=== PATIENT | male | born 1960 | race Caucasian/White ===

== ENCOUNTER 2016-08-15 20:14 | Emergency (ER) | payer BC ==
[~2016-08-15] VITALS: Ht 182.9 cm; Wt 114.2 kg
[~2016-08-15 20:14] MED LIST: AMLO5TAB22 PO; CIPR500T4 PO; HYDR12.56 PO; IBUP-232 PO; LOPE2 PO; QUIN20 PO
[2016-08-15 20:19] VITALS: BP 139/90; PULSE 77; RESP 14; TEMP 98.2; O2SAT 98
[2016-08-15 20:32] VITALS: BP 134/81; PULSE 72; RESP 16; O2SAT 98
[2016-08-15] MEDS ORDERED: SODIUM CHLOR 0.9% 1000 ML INJ 1,000 ML IV SCH (20:36)
--- NOTE | 2016-08-15 20:40 | PD ---
HPI Chief Complaint: Abdominal Pain Time Seen by Provider: 20:22 Travel History International Travel<30 days: No Contact w/Intl Traveler<30days: No Traveled to known affect area: No History of Present Illness HPI The patient is a 55-year-old male who presents emergency department for left lower quadrant pain of one week's duration. The pain started approximately one week ago, is located left lower quadrant, nonradiating, and assisted with mild constipation. The patient denies any nausea, vomiting, fever , chills, or sweats. The patient was seen at an urgent care earlier today and diagnosed with diverticulitis, was placed on Augmentin, and took 2 doses today. The patient does have a history of diverticulosis that was evaluated via colonoscopy 7 years ago, but denies any history of diverticulitis. He does have previous history of appendectomy. He denies any associated dysuria, frequency, or urgency. The patient's primary physician is Dr. Cliff Escobedo. PFS Past Medical History Cancer: No Cardiovascular Problems: No Diabetes: No Diminished Hearing: No Diverticulitis: Yes Glaucoma: No Hepatitis: No Hiatal Hernia: No Hypertension: Yes Musculoskeletal: Yes (HERNIATED L5) Respiratory: No Thyroid Disease: No Past Surgical History Abdominal Surgery: No Appendectomy: Yes Cardiac Surgery: No Endocrine Surgery: No Eye Surgery: No Genitourinary Surgery: Yes (VASECTOMY) Gynecologic Surgery: No Neurologic Surgery: Yes (BACK SURGERY) Oral Surgery: Yes (TOOTH EXTRACTION) Thoracic Surgery: No Other Surgery: Yes (NOSE) Social History Alcohol Use: Yes (6 BEERS A DAY) Tobacco Use: No Substance Use: No Allergies-Medications (Allergen,Severity, Reaction): Coded Allergies: Percocet (Verified Adverse Reaction, Intermediate, Nausea/Vomiting, ) Reported Meds & Prescriptions Reported Meds & Active Scripts Active Motrin (Ibuprofen) 600 Mg Tab 600 Mg PO QID PRN GIVE WITH FOOD Imodium (Loperamide HCl) 2 Mg Cap 2 Mg PO DIRECTED PRN Cipro (Ciprofloxacin HCl) 500 Mg Tab 500 Mg PO BID Reported Amlodipine Besylate 5 Mg Tab 5 Mg PO DAILY Hctz (Hydrochlorothiazide) 12.5 Mg Cap 0 PO BID UNKNOWN DOSE Accupril (Quinapril HCl) 20 Mg Tab 20 Mg PO BID Review of Systems Except as stated in HPI: all other systems reviewed are Neg General / Constitutional: No: Fever, Chills Cardiovascular: No: Chest Pain or Discomfort Respiratory: No: Shortness of Breath Gastrointestinal: Positive: Abdominal Pain, Constipation, Changes in Bowel Habits, No: Nausea, Vomiting, Diarrhea Genitourinary: No: Urgency, Frequency, Dysuria Skin: No Rash Physical Exam Narrative GENERAL: Awake, alert, very pleasant 55-year-old male who appears his stated age and is in no acute respiratory distress. SKIN: Focused skin assessment warm/dry. HEAD: Atraumatic. Normocephalic. EYES: Pupils equal and round. No scleral icterus. No injection or drainage. ENT: No nasal bleeding or discharge. Mucous membranes pink and moist. NECK: Trachea midline. No JVD. CARDIOVASCULAR: Regular rate and rhythm. No murmur appreciated. RESPIRATORY: No accessory muscle use. Clear to auscultation. Breath sounds equal bilaterally. GASTROINTESTINAL: Abdomen soft, tender to palpation left lower quadrant. No suprapubic tenderness. MUSCULOSKELETAL: No obvious deformities. No clubbing. No cyanosis. No edema. NEUROLOGICAL: Awake and alert. No obvious cranial nerve deficits. Motor grossly within normal limits. Normal speech. PSYCHIATRIC: Appropriate mood and affect; insight and judgment normal. Data Data Last Documented VS Vital Signs Date Time Temp Pulse Resp B/P Pulse Ox O2 Delivery O2 Flow Rate FiO2 08/15/16 21:14 16 08/15/16 20:32 72 134/81 98 Room Air 08/15/16 20:19 98.2 Orders Complete Blood Count With Diff (08/15/16 20:36) Comprehensive Metabolic Panel (08/15/16 20:36) Lipase (08/15/16 20:36) Lactic Acid (08/15/16 20:36) Urinalysis - C+S If Indicated (08/15/16 20:36) Ct Abd/Pel W/O Iv Contrast (08/15/16 20:36) Iv Access Insert/Monitor (08/15/16 20:36) Ecg Monitoring (08/15/16 20:36) Oximetry (08/15/16 20:36) Morphine Inj (Morphine Inj) (08/15/16 20:45) Ondansetron Inj (Zofran Inj) (08/15/16 20:45) Ciprofloxacin 400 Mg Premix (Cipro 400 M (08/15/16 20:45) Metronidazole 500 Mg Inj (Flagyl 500 Mg (08/15/16 20:45) Sodium Chlor 0.9% 1000 Ml Inj (Ns 1000 M (08/15/16 20:36) Sodium Chloride 0.9% Flush (Ns Flush) (08/15/16 20:45) Ketorolac Inj (Toradol Inj) (08/15/16 20:45) Labs Laboratory Tests Test 08/15/16 20:44 White Blood Count 8.9 TH/MM3 Red Blood Count 5.04 MIL/MM3 Hemoglobin 16.2 GM/DL Hematocrit 48.7 % Mean Corpuscular Volume 96.7 FL Mean Corpuscular Hemoglobin 32.1 PG Mean Corpuscular Hemoglobin 33.2 % Concent Red Cell Distribution Width 11.9 % Platelet Count 197 TH/MM3 Mean Platelet Volume 10.3 FL Neutrophils (%) (Auto) 59.2 % Lymphocytes (%) (Auto) 27.1 % Monocytes (%) (Auto) 7.4 % Eosinophils (%) (Auto) 3.7 % Basophils (%) (Auto) 2.6 % Neutrophils # (Auto) 5.3 TH/MM3 Lymphocytes # (Auto) 2.4 TH/MM3 Monocytes # (Auto) 0.7 TH/MM3 Eosinophils # (Auto) 0.3 TH/MM3 Basophils # (Auto) 0.2 TH/MM3 CBC Comment DIFF FINAL Differential Comment Sodium Level 139 MEQ/L Potassium Level 3.8 MEQ/L Chloride Level 104 MEQ/L Carbon Dioxide Level 29.5 MEQ/L Anion Gap 6 MEQ/L Blood Urea Nitrogen 12 MG/DL Creatinine 0.96 MG/DL Estimat Glomerular Filtration 81 ML/MIN Rate Random Glucose 95 MG/DL Lactic Acid Level 0.6 mmol/L Calcium Level 9.6 MG/DL Total Bilirubin 0.7 MG/DL Aspartate Amino Transf 26 U/L (AST/SGOT) Alanine Aminotransferase 63 U/L (ALT/SGPT) Alkaline Phosphatase 67 U/L Total Protein 7.2 GM/DL Albumin 3.7 GM/DL Lipase 112 U/L [facility] Medical Decision Making Medical Screen Exam Complete: Yes Emergency Medical Condition: Yes Medical Record Reviewed: Yes Interpretation(s) Laboratory Tests Test 08/15/16 20:44 White Blood Count 8.9 TH/MM3 Red Blood Count 5.04 MIL/MM3 Hemoglobin 16.2 GM/DL Hematocrit 48.7 % Mean Corpuscular Volume 96.7 FL Mean Corpuscular Hemoglobin 32.1 PG Mean Corpuscular Hemoglobin 33.2 % Concent Red Cell Distribution Width 11.9 % Platelet Count 197 TH/MM3 Mean Platelet Volume 10.3 FL Neutrophils (%) (Auto) 59.2 % Lymphocytes (%) (Auto) 27.1 % Monocytes (%) (Auto) 7.4 % Eosinophils (%) (Auto) 3.7 % Basophils (%) (Auto) 2.6 % Neutrophils # (Auto) 5.3 TH/MM3 Lymphocytes # (Auto) 2.4 TH/MM3 Monocytes # (Auto) 0.7 TH/MM3 Eosinophils # (Auto) 0.3 TH/MM3 Basophils # (Auto) 0.2 TH/MM3 CBC Comment DIFF FINAL Differential Comment Sodium Level 139 MEQ/L Potassium Level 3.8 MEQ/L Chloride Level 104 MEQ/L Carbon Dioxide Level 29.5 MEQ/L Anion Gap 6 MEQ/L Blood Urea Nitrogen 12 MG/DL Creatinine 0.96 MG/DL Estimat Glomerular Filtration 81 ML/MIN Rate Random Glucose 95 MG/DL Lactic Acid Level 0.6 mmol/L Calcium Level 9.6 MG/DL Total Bilirubin 0.7 MG/DL Aspartate Amino Transf 26 U/L (AST/SGOT) Alanine Aminotransferase 63 U/L (ALT/SGPT) Alkaline Phosphatase 67 U/L Total Protein 7.2 GM/DL Albumin 3.7 GM/DL Lipase 112 U/L Last Impressions Abdomen/Pelvis CT 08/15/162035 Signed Impressions: Service Date/Time: Monday, August 15, 2016 20:47 - CONCLUSION: 1. Acute diverticulitis involving the distal descending and proximal sigmoid colon. 2. Right inguinal hernia containing fat and minimal fluid. 3. Enlarged fatty liver. 4. Enlarged prostate. 5. Degenerative disc disease at L5-S1. Rustam Bentley MD Differential Diagnosis Differential diagnosis includes diverticulitis, diverticular abscess, nephrolithiasis, constipation, complicated urinary tract infection. Narrative Course IV was established, labs were drawn and sent, and the patient was placed on cardiac telemetry monitoring and continuous pulse oximetry monitoring. The patient was administered morphine, Toradol, Zofran, IV fluids, Cipro, and Flagyl. UA was sent to lab. CT of the abdomen and pelvis was ordered. The patient's white count is normal. Lactic acid is unremarkable. CT the abdomen and pelvis is positive for diverticulitis, no evidence of abscess. The patient is reevaluated, his pain had improved. I had a discussion with the patient regarding Augmentin versus Cipro/Flagyl, patient would prefer to go with Cipro/ Flagyl. He is advised to stop taking the Augmentin. I offered pain medication such as hydrocodone, however, he declined and states he'll take ibuprofen at home. The patient has a follow-up appointment with his primary physician on July 25, he will be provided a copy of his CT results and lab results. Clear liquid diet and advance as tolerated, return if symptoms worsen or progress. Diagnosis Primary Impression: Diverticulitis Qualified Code: K57.32 - Diverticulitis of large intestine without perforation or abscess, unspecified bleeding status Patient Instructions: General Instructions Additional Instructions: Please provide the patient a copy of his CT results and lab results at discharge. Cipro and Flagyl twice a day, ibuprofen as needed for pain. Follow- up with your primary physician as scheduled on July 25. Return if symptoms worsen or progress. No drinking alcohol on Flagyl to avoid disulfiram reaction. Med/Other Pt SpecificInfo: Prescription(s) given, Med Stopped (stop Augmentin) Scripts Metronidazole (Flagyl)500 Mg [id number] Mg PO BID 7 Days Ref 0 Prov:Nestor Hanson MD 08/15/16 Ciprofloxacin 500 Mg [id number] Mg PO BID 7 Days Ref 0 Prov:Nestor Hanson MD 08/15/16 Disposition: 01 DISCHARGE HOME Condition: Stable Nestor Hanson MD August 15, 2016 20:40
[2016-08-15] MEDS ORDERED: SODIUM CHLORIDE 0.9% FLUSH 10 ML FLUSH IV FLUSH PRN (20:45)
[2016-08-15] MEDS ORDERED: CIPROFLOXACIN 400 MG PREMIX 200 ML IV ONE (20:45)
[2016-08-15] MEDS ORDERED: MORPHINE SULFATE 4 MG/ML INJ IV PUSH ONE (20:45)
[2016-08-15] MEDS ORDERED: KETOROLAC TROMETHAMINE 30 MG/ML (IVP) VIAL IVP ONE (20:45)
[2016-08-15] MEDS ORDERED: metroNIDAZOLE 500 MG INJ 100 ML IV ONE (20:45)
[2016-08-15] MEDS ORDERED: ONDANSETRON HCL 4 MG/2 ML VIAL IVP ONE (20:45)
[2016-08-15 21:13] LABS: CHLORIDE 104 MEQ/L (98-107); POTASSIUM 3.8 MEQ/L (3.5-5.1); SODIUM (NA) 139 MEQ/L (136-145)
--- NOTE | 2016-08-15 21:14 | RADHPO ---
EXAM DATE/TIME: 08/15/2016 20:47 [facility] COMPARISON: No previous studies available for comparison. INDICATIONS : Left lower quadrant pain. ORAL CONTRAST: No oral contrast ingested. RADIATION DOSE: 20.83 CTDIvol (mGy) MEDICAL HISTORY : Hypertension. Diverticulitis. SURGICAL HISTORY : Appendectomy. ENCOUNTER: Initial ACUITY: 1 week PAIN SCALE: 4/10 LOCATION: Left lower quadrant TECHNIQUE: Volumetric scanning of the abdomen and pelvis was performed. Using automated exposure control and ad justment of the mA and/or kV according to patient size, radiation dose was kept as low as reasonably achievable to obtain optimal diagnostic quality images. FINDINGS: LOWER LUNGS: The visualized lower lungs are clear. LIVER: The liver is enlarged and demonstrates diffuse fatty infiltration. No focal mass is noted. There is n o dilation of the biliary tree. No calcified gallstones. SPLEEN: Normal size without lesion. PANCREAS: Within normal limits. KIDNEYS: Normal in size and shape. There is no mass, stone, or hydronephrosis. ADRENAL GLANDS: Within normal limits. VASCULAR: There is no aortic aneurysm. BOWEL/MESENTERY: Acute diverticulitis is noted in the expected region of the distal descending and proximal sigmoid co gwyn within the left lower quadrant. There is no evidence of pericolic abscess. ABDOMINAL WALL: Within normal limits. RETROPERITONEUM: There is no lymphadenopathy. BLADDER: No wall thickening or mass. REPRODUCTIVE: Prostate is enlarged. INGUINAL: There is no lymphadenopathy. Right inguinal hernia containing fat and minimal fluid is noted. MUSCULOSKELETAL: Degenerative disc disease is noted at L5-S1. CONCLUSION: 1. Acute diverticulitis involving the distal descending and proximal sigmoid colon. 2. Right inguinal hernia containing fat and minimal fluid. 3. Enlarged fatty liver. 4. Enlarged prostate. 5. Degenerative disc disease at L5-S1. Rustam Bentley MD on August 15, 2016 at 21:07 Board Certified Radiologist. This report was verified electronically.
[2016-08-15 21:17] LABS: ANION GAP 6 MEQ/L (5-15); BICARBONATE 29.5 MEQ/L (21.0-32.0); BLOOD UREA NITROGEN 12 MG/DL (7-18)
[2016-08-15 21:20] LABS: ALT (GPT) 63 U/L (12-78); AST (GOT) 26 U/L (15-37); GLOMERULAR FILTRATION RATE 81 ML/MIN (>89)
[2016-08-15 21:21] LABS: TOTAL BILIRUBIN ADULT 0.7 MG/DL (0.2-1.0)
[2016-08-15 21:23] LABS: ALKALINE PHOSPHATASE 67 U/L (45-117)
[2016-08-15 21:44] LABS: AUTOMATED NEUTROPHIL # 5.3 TH/MM3 (1.8-7.7); BASOPHIL # 0.2 TH/MM3 (0-0.2); BASOPHIL % 2.6 % (0.0-2.0); EOSINOPHIL # 0.3 TH/MM3 (0-0.4); EOSINOPHIL % 3.7 % (0.0-4.0); HEMATOCRIT 48.7 % (39.0-51.0); HEMO FLAGS DIFF FINAL; LYMPH % 27.1 % (9.0-44.0); LYMPHOCYTE # 2.4 TH/MM3 (1.0-4.8); MEAN CELL VOLUME 96.7 FL (80.0-100.0); MEAN CORPUSCULAR HEMOGLOBIN 32.1 PG (27.0-34.0); MEAN CORPUSCULAR HGB CONC 33.2 % (32.0-36.0); MONO % 7.4 % (0.0-8.0); NEUT % 59.2 % (16.0-70.0); PLATELET COUNT 197 TH/MM3 (150-450); RED BLOOD COUNT 5.04 MIL/MM3 (4.50-5.90); RED CELL DISTRIBUTION WIDTH 11.9 % (11.6-17.2); WHITE BLOOD COUNT 8.9 TH/MM3 (4.0-11.0)
[2016-08-15 21:47] LABS: BLOOD, URINE NEG (NEG); GLUCOSE,URINE NEG (NEG); KETONE, URINE NEG (NEG); NITRITE,URINE NEG (NEG); PH, URINE 5.5 (5.0-8.5)
[2016-08-15] MEDS ORDERED: CIPR500T2 PO (21:59)
[2016-08-15] MEDS ORDERED: METR-1 PO (21:59)
[2016-08-15 22:38] LABS: URINE COLOR YELLOW (YELLW/STRAW)
[2016-08-15 22:39] LABS: COMMENT (UR) CULT NOT INDICATED; CULTURE IF INDICATED CULT NOT INDICATED; SQUAMOUS EPITHELIAL CELL URINE 0-5 /hpf (0-5); WBC, URINE 0-2 /hpf (0-5)
[2016-08-15 22:45] VITALS: BP 116/67; PULSE 72; RESP 16; O2SAT 94
== END 2016-08-15 23:28 | disposition home or self-care (01) ==
LOC: PHED 20:14
DX: K57.32 Diverticulitis of large intestine without perforation or abscess without bleeding (principal); K40.90 Unilateral inguinal hernia, without obstruction or gangrene, not specified as recurrent; K76.0 Fatty (change of) liver, not elsewhere classified; N40.0 Benign prostatic hyperplasia without lower urinary tract symptoms; K59.00 Constipation, unspecified; M51.37 Other intervertebral disc degeneration, lumbosacral region; I10 Essential (primary) hypertension; Z79.899 Other long term (current) drug therapy
CPT/HCPCS: 74176; 80053; 81001; 83605; 83690; 85025; 96365; 96375; 99285; J0744; J1885; J2270; J2405; J7030

== ENCOUNTER 2017-06-08 12:47 | Inpatient (IN) | payer BC ==
[2017-06-08] VITALS (16 sets, daily range): BP systolic 115–170; BP diastolic 70–126; PULSE 63–191; RESP 15–18; TEMP 97.8–98.6; O2SAT 95–100
[~2017-06-08] VITALS: Ht 182.9 cm; Wt 110.0 kg
[~2017-06-08 12:47] MED LIST changes: +CIPR500T2 PO; -CIPR500T4 PO; -LOPE2 PO; +METR-1 PO
[2017-06-08] MEDS ORDERED: SODIUM CHLORIDE 0.9% FLUSH 10 ML FLUSH IVF PRN (13:00)
[2017-06-08] MEDS ORDERED: ADENOSINE IV SOLN 3 MG/ML 2 ML VIAL ONE (13:02)
[2017-06-08] MEDS ORDERED: QUIN5TAB6 PO (13:11)
[2017-06-08] MEDS ORDERED: HYDR12.56 PO (13:11)
--- NOTE | 2017-06-08 13:12 | PD ---
HPI Chief Complaint: Chest Pain Time Seen by Provider: 12:56 Travel History International Travel<30 days: No Contact w/Intl Traveler<30days: No Traveled to known affect area: No History of Present Illness HPI 56-year-old male that presents to the ED for evaluation of chest pain. Per patient she's had chest pain and sensation of dizziness for about one hour. Per patient she's had an episode like this before but he was never seen anybody for this. Per patient he has a significant history of high blood pressure since age 28. No history of high cholesterol diabetes. 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 No history of heart disease on himself but family history. Per patient he works outside a lot and he thought that he might just be dehydrated. He states that the pain feels like a pressure. He denies any numbness, tilling, weakness. No abdominal pain. Nausea vomiting. No bowel movement or urinary issues. Per triage report patient's heart rate was in the 190s to 200 when initially evaluated. No history of A. fib in the past. Pain per patient is 6 out of 10 and feels like a pressure with dizziness when the palpitations seemed like going high. Allergies to oxycodone and acetaminophen. Denies any other medical issues at this time. Per patient she is compliant with his blood pressure medications. He takes 2 medications. He did took a full aspirin today. PFSH Past Medical History Cancer: No Cardiovascular Problems: Yes (HTN) Diabetes: No Diminished Hearing: No Diverticulitis: Yes Glaucoma: No Hepatitis: No Hiatal Hernia: No Hypertension: Yes Musculoskeletal: Yes (HERNIATED L5) Respiratory: No Thyroid Disease: No Past Surgical History Abdominal Surgery: No Appendectomy: Yes Cardiac Surgery: No Endocrine Surgery: No Eye Surgery: No Genitourinary Surgery: Yes (VASECTOMY) Gynecologic Surgery: No Neurologic Surgery: Yes (BACK SURGERY) Oral Surgery: Yes (TOOTH EXTRACTION) Thoracic Surgery: No Other Surgery: Yes (NOSE) Social History Alcohol Use: Yes (6 BEERS A DAY) Tobacco Use: No Substance Use: No Allergies-Medications (Allergen,Severity, Reaction): Coded Allergies: acetaminophen (Unverified Adverse Reaction, Intermediate, Nausea/Vomiting , 06/08/17) oxycodone (Unverified Adverse Reaction, Intermediate, Nausea/Vomiting, ) Reported Meds & Prescriptions Reported Meds & Active Scripts Active Reported Quinapril (Quinapril HCl) 5 Mg Tab 5 Mg PO BID Hydrochlorothiazide 12.5 Mg Tab Unknown Dose PO DAILY Review of Systems Except as stated in HPI: all other systems reviewed are Neg Physical Exam Narrative GENERAL: SKIN: Warm and dry. HEAD: Atraumatic. Normocephalic. EYES: Pupils equal and round. No scleral icterus. No injection or drainage. ENT: No nasal bleeding or discharge. Mucous membranes pink and moist. Tongue is midline. No uvula deviation. NECK: Trachea midline. No JVD. CARDIOVASCULAR: Irregular tachycardic rate and rhythm. Cannot hear obvious murmur secondary to tachycardia RESPIRATORY: No accessory muscle use. Clear to auscultation. Breath sounds equal bilaterally. GASTROINTESTINAL: Abdomen soft, non-tender, nondistended. Hepatic and splenic margins not palpable. MUSCULOSKELETAL: Extremities without clubbing, cyanosis, or edema. No obvious deformities. Full range of motion of the upper and lower x-rays bilaterally. 2 + pulses bilaterally. NEUROLOGICAL: Awake and alert. No obvious cranial nerve deficits. Motor grossly within normal limits. Five out of 5 muscle strength in the arms and legs. Normal speech. PSYCHIATRIC: Appropriate mood and affect; insight and judgment normal. Data Data Last Documented VS Vital Signs Date Time Temp Pulse Resp B/P (MAP) Pulse Ox O2 Delivery O2 Flow Rate FiO2 06/08/17 13:59 99 132/69 06/08/17 13:27 15 06/08/17 13:02 97 Room Air 06/08/17 12:51 97.8 Orders Orders Electrocardiogram (06/08/17 12:56) B-Type Natriuretic Peptide (06/08/17 12:56) Ckmb (Isoenzyme) Profile (06/08/17 12:56) Complete Blood Count With Diff (06/08/17 12:56) Comprehensive Metabolic Panel (06/08/17 12:56) Magnesium (Mg) (06/08/17 12:56) Prothrombin Time / Inr (Pt) (06/08/17 12:56) Act Partial Throm Time (Ptt) (06/08/17 12:56) Troponin I (06/08/17 12:56) Lipase (06/08/17 12:56) Ecg Monitoring (06/08/17 12:56) Bilateral Bp Monitoring (06/08/17 12:56) Iv Access Insert/Monitor (06/08/17 12:56) Oximetry (06/08/17 12:56) Oxygen Administration (06/08/17 12:56) Sodium Chloride 0.9% Flush (Ns Flush) (06/08/17 13:00) Chest, Single Ap (06/08/17 ) Adenosine Inj (Adenocard Inj) (06/08/17 13:02) Diltiazem Inj (Cardizem Inj) (06/08/17 13:15) Diltiazem Inj (Cardizem Inj) (06/08/17 13:15) Diltiazem Inj (Cardizem Inj) (06/08/17 13:15) CKMB (06/08/17 13:10) CKMB% (06/08/17 13:10) D-Dimer (06/08/17 14:42) Admit Order (Ed Use Only) (06/08/17 14:42) Labs Laboratory Tests Test 06/08/17 13:10 White Blood Count 8.7 TH/MM3 Red Blood Count 4.66 MIL/MM3 Hemoglobin 15.9 GM/DL Hematocrit 44.2 % Mean Corpuscular Volume 95.0 FL Mean Corpuscular Hemoglobin 34.2 PG Mean Corpuscular Hemoglobin Concent 36.0 % Red Cell Distribution Width 12.6 % Platelet Count 208 TH/MM3 Mean Platelet Volume 9.8 FL Neutrophils (%) (Auto) 67.8 % Lymphocytes (%) (Auto) 21.6 % Monocytes (%) (Auto) 8.3 % Eosinophils (%) (Auto) 1.7 % Basophils (%) (Auto) 0.6 % Neutrophils # (Auto) 5.9 TH/MM3 Lymphocytes # (Auto) 1.9 TH/MM3 Monocytes # (Auto) 0.7 TH/MM3 Eosinophils # (Auto) 0.1 TH/MM3 Basophils # (Auto) 0.0 TH/MM3 CBC Comment AUTO DIFF Differential Comment AUTO DIFF CONFIRMED Platelet Estimate NORMAL Platelet Morphology Comment CLUMPED Prothrombin Time 10.3 SEC Prothromb Time International Ratio 1.0 RATIO Activated Partial Thromboplast Time 25.1 SEC Blood Urea Nitrogen 15 MG/DL Creatinine 0.93 MG/DL Random Glucose 99 MG/DL Total Protein 7.6 GM/DL Albumin 4.0 GM/DL Calcium Level 9.7 MG/DL Magnesium Level 1.8 MG/DL Alkaline Phosphatase 73 U/L Aspartate Amino Transf (AST/SGOT) 35 U/L Alanine Aminotransferase (ALT/SGPT) 62 U/L Total Bilirubin 0.6 MG/DL Sodium Level 141 MEQ/L Potassium Level 3.7 MEQ/L Chloride Level 104 MEQ/L Carbon Dioxide Level 26.5 MEQ/L Anion Gap 11 MEQ/L Estimat Glomerular Filtration Rate 84 ML/MIN Total Creatine Kinase 137 U/L Creatine Kinase MB 1.8 NG/ML Troponin I LESS THAN 0.02 NG/ML B-Type Natriuretic Peptide 21 PG/ML Lipase 105 U/L [facility] Medical Decision Making Medical Screen Exam Complete: Yes Emergency Medical Condition: Yes Medical Record Reviewed: Yes Interpretation(s) CBC & BMP Diagram 06/08/17 13:10 Total Protein 7.6, Albumin 4.0, Calcium Level 9.7, Magnesium Level 1.8, Alkaline Phosphatase 73, Aspartate Amino Transf (AST/SGOT) 35, Alanine Aminotransferase (ALT/SGPT) 62, Total Bilirubin 0.6 coags WNL troponin and CKMB negative EKG shows atrial fibrillation and RVR Differential Diagnosis Chest pain versus A. fib versus sinus ventricular tachycardia versus tachyarrhythmia versus ACS versus new onset A. fib versus dehydration versus electrolyte abnormality Narrative Course 56-year-old male that presents to the ED for evaluation of chest pain and palpitations. Patient was properly examined by me and was found to have signs and symptoms consistent with tachyarrhythmia. When I was about when the patient initially his heart was in the 110 and then patient complaining of another onset of chest pain and dizziness and his heart rate went into the 200s immediately. Appear to be atrial fibrillation. Labs and imaging were immediately ordered. My attending was made aware of symptoms and immediately evaluated the patient. Diltiazem was started. Patient was reassessed and heart rates better but he continues to creep up. Patient was started on another bolus and put on the trip. Patient's blood work was essentially unremarkable. I spoke with Dr. Jalloh who agrees to admission and wanted a d- dimer added as well to rule out any sign of PE. Diagnosis Primary Impression: Atrial fibrillation with RVR Admitting Information Admitting Physician Requests: Admit Octavio Alberto Jun 08, 2017 13:12
[2017-06-08] MEDS ORDERED: DILTIAZEM INJ 125 MG in SODIUM CHLORIDE 0.9% INJ 100 ML IV PRN (13:15)
[2017-06-08] MEDS ORDERED: DILTIAZEM HCL 25 MG/5 ML VIAL IV ONE ×2 (13:15)
[2017-06-08 13:31] LABS: AUTOMATED NEUTROPHIL # 5.9 TH/MM3 (1.8-7.7); BASOPHIL % 0.6 % (0.0-2.0); EOSINOPHIL # 0.1 TH/MM3 (0-0.4); EOSINOPHIL % 1.7 % (0.0-4.0); HEMATOCRIT 44.2 % (39.0-51.0); HEMOGLOBIN 15.9 GM/DL (13.0-17.0); LYMPH % 21.6 % (9.0-44.0); LYMPHOCYTE # 1.9 TH/MM3 (1.0-4.8); MEAN CORPUSCULAR HEMOGLOBIN 34.2 PG (27.0-34.0); MEAN PLATELET VOLUME 9.8 FL (7.0-11.0); MONO % 8.3 % (0.0-8.0); MONOCYTE # 0.7 TH/MM3 (0-0.9); NEUT % 67.8 % (16.0-70.0); PLATELET COUNT 208 TH/MM3 (150-450); RED BLOOD COUNT 4.66 MIL/MM3 (4.50-5.90); RED CELL DISTRIBUTION WIDTH 12.6 % (11.6-17.2); WHITE BLOOD COUNT 8.7 TH/MM3 (4.0-11.0)
[2017-06-08 13:37] LABS: PROTHROMBIN TIME - PATIENT 10.3 SEC (9.8-11.6)
--- NOTE | 2017-06-08 13:59 | RADRPT ---
EXAM DATE/TIME: 06/08/2017 13:06 [facility] COMPARISON: CT ABDOMEN & PELVIS W/O CONTRAST, August 15, 2016, 20:47. INDICATIONS : Chest pain. MEDICAL HISTORY : Hypertension. Diverticulitis. SURGICAL HISTORY : Appendectomy. ENCOUNTER: Initial ACUITY: 1 day PAIN SCORE: 8/10 LOCATION: Bilateral chest FINDINGS: There is mild asymmetric elevation or eventration of right diaphragm and mild parenchymal opacity the right lung base of undetermined chronicity. Lungs are otherwise clear. No effusion suspected. Cardia c contours are satisfactory for technique and projection. CONCLUSION: Slight asymmetric elevation or eventration of right diaphragm and minimal right base parenchymal opac ity which is likely chronic. Jong Wheatley MD on June 08, 2017 at 13:54 Board Certified Radiologist. This report was verified electronically.
[2017-06-08 14:03] LABS: ALKALINE PHOSPHATASE 73 U/L (45-117); ALT (GPT) 62 U/L (12-78); AST (GOT) 35 U/L (15-37); BICARBONATE 26.5 MEQ/L (21.0-32.0); BLOOD UREA NITROGEN 15 MG/DL (7-18); CALCIUM 9.7 MG/DL (8.5-10.1); CHLORIDE 104 MEQ/L (98-107); CREATININE 0.93 MG/DL (0.60-1.30); GLOMERULAR FILTRATION RATE 84 ML/MIN (>89); GLUCOSE,RANDOM 99 MG/DL (74-106); MAGNESIUM 1.8 MG/DL (1.5-2.5); SODIUM (NA) 141 MEQ/L (136-145); TOTAL BILIRUBIN ADULT 0.6 MG/DL (0.2-1.0); TOTAL PROTEIN 7.6 GM/DL (6.4-8.2); TROPONIN I LESS THAN 0.02 NG/ML (0.02-0.05)
--- NOTE | 2017-06-08 14:22 | PD ---
Data Data Last Documented VS Vital Signs Date Time Temp Pulse Resp B/P (MAP) Pulse Ox O2 Delivery O2 Flow Rate FiO2 06/08/17 13:59 99 132/69 06/08/17 13:27 15 06/08/17 13:02 97 Room Air 06/08/17 12:51 97.8 Orders Orders Electrocardiogram (06/08/17 12:56) B-Type Natriuretic Peptide (06/08/17 12:56) Ckmb (Isoenzyme) Profile (06/08/17 12:56) Complete Blood Count With Diff (06/08/17 12:56) Comprehensive Metabolic Panel (06/08/17 12:56) Magnesium (Mg) (06/08/17 12:56) Prothrombin Time / Inr (Pt) (06/08/17 12:56) Act Partial Throm Time (Ptt) (06/08/17 12:56) Troponin I (06/08/17 12:56) Lipase (06/08/17 12:56) Ecg Monitoring (06/08/17 12:56) Bilateral Bp Monitoring (06/08/17 12:56) Iv Access Insert/Monitor (06/08/17 12:56) Oximetry (06/08/17 12:56) Oxygen Administration (06/08/17 12:56) Sodium Chloride 0.9% Flush (Ns Flush) (06/08/17 13:00) Chest, Single Ap (06/08/17 ) Adenosine Inj (Adenocard Inj) (06/08/17 13:02) Diltiazem Inj (Cardizem Inj) (06/08/17 13:15) Diltiazem Inj (Cardizem Inj) (06/08/17 13:15) Diltiazem Inj (Cardizem Inj) (06/08/17 13:15) CKMB (06/08/17 13:10) CKMB% (06/08/17 13:10) Labs Laboratory Tests Test 06/08/17 13:10 White Blood Count 8.7 TH/MM3 Red Blood Count 4.66 MIL/MM3 Hemoglobin 15.9 GM/DL Hematocrit 44.2 % Mean Corpuscular Volume 95.0 FL Mean Corpuscular Hemoglobin 34.2 PG Mean Corpuscular Hemoglobin Concent 36.0 % Red Cell Distribution Width 12.6 % Platelet Count 208 TH/MM3 Mean Platelet Volume 9.8 FL Neutrophils (%) (Auto) 67.8 % Lymphocytes (%) (Auto) 21.6 % Monocytes (%) (Auto) 8.3 % Eosinophils (%) (Auto) 1.7 % Basophils (%) (Auto) 0.6 % Neutrophils # (Auto) 5.9 TH/MM3 Lymphocytes # (Auto) 1.9 TH/MM3 Monocytes # (Auto) 0.7 TH/MM3 Eosinophils # (Auto) 0.1 TH/MM3 Basophils # (Auto) 0.0 TH/MM3 CBC Comment AUTO DIFF Differential Comment AUTO DIFF CONFIRMED Platelet Estimate NORMAL Platelet Morphology Comment CLUMPED Prothrombin Time 10.3 SEC Prothromb Time International Ratio 1.0 RATIO Activated Partial Thromboplast Time 25.1 SEC Blood Urea Nitrogen 15 MG/DL Creatinine 0.93 MG/DL Random Glucose 99 MG/DL Total Protein 7.6 GM/DL Albumin 4.0 GM/DL Calcium Level 9.7 MG/DL Magnesium Level 1.8 MG/DL Alkaline Phosphatase 73 U/L Aspartate Amino Transf (AST/SGOT) 35 U/L Alanine Aminotransferase (ALT/SGPT) 62 U/L Total Bilirubin 0.6 MG/DL Sodium Level 141 MEQ/L Potassium Level 3.7 MEQ/L Chloride Level 104 MEQ/L Carbon Dioxide Level 26.5 MEQ/L Anion Gap 11 MEQ/L Estimat Glomerular Filtration Rate 84 ML/MIN Total Creatine Kinase 137 U/L Creatine Kinase MB 1.8 NG/ML Troponin I LESS THAN 0.02 NG/ML B-Type Natriuretic Peptide 21 PG/ML Lipase 105 U/L [facility] Medical Record Reviewed: Yes Supervised Visit with TANYA: Yes Narrative Course I, Dr. Ventura, have reviewed the advance practice practitioner's documentation and am in agreement, met with the patient face to face, made the diagnosis, and the medical decision making was done by me. *My assessment and Findings: Patient arrives with A. fib RVR and rates up to 200. Diltiazem effectively controlled rate. Patient will be admitted for further diagnostic evaluation and treatment. Stanford Ventura MD Jun 08, 2017 14:22
[2017-06-08] MEDS ORDERED: HALOPERIDOL LACTATE 5 MG/ML AMP IM PRN (14:45)
[2017-06-08] MEDS ORDERED: LORazepam 2 MG/ML VIAL IV PUSH PRN ×4 (14:45)
[2017-06-08] MEDS ORDERED: LORazepam 2 MG TAB PO PRN (14:45)
[2017-06-08] MEDS ORDERED: FLUMAZENIL 0.5 MG/5 ML VIAL IV PUSH PRN (14:45)
[2017-06-08] MEDS ORDERED: LORazepam 1 MG TAB PO PRN (14:45)
[2017-06-08] MEDS ORDERED: NITROGLYCERIN 0.4 MG SL 25 TABS/BTL SL PRN (14:45)
[2017-06-08] MEDS ORDERED: NALOXONE HCL 0.4 MG/ML AMP IV PUSH PRN (15:00)
[2017-06-08] MEDS ORDERED: BISACODYL 10 MG SUPP RECTAL PRN (15:00)
[2017-06-08] MEDS ORDERED: ONDANSETRON HCL 4 MG/2 ML VIAL IVP PRN (15:00)
[2017-06-08] MEDS ORDERED: SODIUM CHLORIDE 0.9% FLUSH 10 ML FLUSH IV FLUSH PRN (15:00)
[2017-06-08] MEDS ORDERED: LACTULOSE SYRUP 20 GM/30 ML CUP PO PRN (15:00)
[2017-06-08] MEDS ORDERED: ACETAMINOPHEN 325 MG TAB PO PRN ×2 (15:00)
[2017-06-08] MEDS ORDERED: MAGNESIUM HYDROXIDE SUSP 30 ML CUP PO PRN (15:00)
[2017-06-08] MEDS ORDERED: SENNOSIDES 8.6 MG TAB PO PRN (15:00)
[2017-06-08] MEDS: DILTIAZEM HCL 30 MG TAB PO SCH ×2 (16:43→20:29)
[2017-06-08] MEDS: HEPARIN SODIUM - SQ 10,000 UNITS/ML VIAL SQ SCH (16:44)
--- NOTE | 2017-06-08 17:09 | HHI.HP ---
[facility] Cliff [facility], Admission Diagnosis acute new onset atrial fibrillation Diagnoses: Chief Complaint: Chest pressure Travel History International Travel<30 Days: No Contact w/Intl Traveler <30 Da: No Traveled to Known Affected Are: No History of Present Illness This is a 56-year-old male who presented to the emergency department because of chest pressure which started an hour prior to arrival. He describes a moderate retrosternal pressure scale of 8 out of 10 without radiation but associated with shortness of breath and dizziness. No nausea, palpitations and diaphoresis. Patient took an aspirin. He has history of hypertension since age 28 maintained on hydrochlorothiazide and Accupril. In the emergency department he was found to be in A. fib RVR and received 2 doses of IV Cardizem and started on drip currently on sinus rhythm. At this time he has no complaints. Denies drug use, tobacco use, caffeinated drinks but abuses alcohol. 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 History of diverticulitis Past Surgical History Appendectomy, vasectomy, back surgery Reported Medications Reported Meds & Active Scripts Active Reported Quinapril (Quinapril HCl) 5 Mg Tab 5 Mg PO BID Hydrochlorothiazide 12.5 Mg Tab Unknown Dose PO DAILY Allergies: Coded Allergies: acetaminophen (Unverified Adverse Reaction, Intermediate, Nausea/Vomiting , 06/08/17) oxycodone (Unverified Adverse Reaction, Intermediate, Nausea/Vomiting, ) Family History High blood pressure Social History As previously mentioned Physical Exam Vital Signs Vital Signs Date Time Temp Pulse Resp B/P (MAP) Pulse Ox O2 Delivery O2 Flow Rate FiO2 06/08/17 16:24 74 17 121/70 (87) 98 Nasal Cannula 3.00 06/08/17 15:08 77 17 127/71 (89) 99 Room Air 06/08/17 13:59 99 132/69 06/08/17 13:35 126 06/08/17 13:27 89 15 06/08/17 13:17 93 17 160/110 (127) 06/08/17 13:07 115 170/126 (141) 06/08/17 13:02 189 15 159/114 (129) 97 Room Air 06/08/17 12:51 97.8 191 16 115/80 (92) 100 Physical Exam GENERAL: This is a well-nourished, well-developed patient, in no apparent distress. SKIN: No rashes, ecchymoses or lesions. Cool and dry. HEAD: Atraumatic. Normocephalic. No temporal or scalp tenderness. EYES: Pupils equal round and reactive. Extraocular motions intact. No scleral icterus. No injection or drainage. ENT: Nose without bleeding, purulent drainage or septal hematoma. Throat without erythema, tonsillar hypertrophy or exudate. Uvula midline. Airway patent. NECK: Trachea midline. No JVD or lymphadenopathy. Supple, nontender, no meningeal signs. CARDIOVASCULAR: Regular rate and rhythm without murmurs, gallops, or rubs. RESPIRATORY: Clear to auscultation. Breath sounds equal bilaterally. No wheezes , rales, or rhonchi. GASTROINTESTINAL: Abdomen soft, non-tender, nondistended.. No guarding. MUSCULOSKELETAL: Extremities without clubbing, cyanosis, or edema. No joint tenderness, effusion, or edema noted. No calf tenderness. Negative Homans sign bilaterally. NEUROLOGICAL: Awake and alert. Cranial nerves II through XII intact. Motor and sensory grossly within normal limits. Five out of 5 muscle strength in all muscle groups. Normal speech. Laboratory Laboratory Tests Test 06/08/17 13:10 White Blood Count 8.7 Red Blood Count 4.66 Hemoglobin 15.9 Hematocrit 44.2 Mean Corpuscular Volume 95.0 Mean Corpuscular Hemoglobin 34.2 Mean Corpuscular Hemoglobin Concent 36.0 Red Cell Distribution Width 12.6 Platelet Count 208 Mean Platelet Volume 9.8 Neutrophils (%) (Auto) 67.8 Lymphocytes (%) (Auto) 21.6 Monocytes (%) (Auto) 8.3 Eosinophils (%) (Auto) 1.7 Basophils (%) (Auto) 0.6 Neutrophils # (Auto) 5.9 Lymphocytes # (Auto) 1.9 Monocytes # (Auto) 0.7 Eosinophils # (Auto) 0.1 Basophils # (Auto) 0.0 CBC Comment AUTO DIFF Differential Comment AUTO DIFF CONFIRMED Platelet Estimate NORMAL Platelet Morphology Comment CLUMPED Prothrombin Time 10.3 Prothromb Time International Ratio 1.0 Activated Partial Thromboplast Time 25.1 D-Dimer Quantitative (PE/DVT) LESS THAN 0.19 Blood Urea Nitrogen 15 Creatinine 0.93 Random Glucose 99 Total Protein 7.6 Albumin 4.0 Calcium Level 9.7 Magnesium Level 1.8 Alkaline Phosphatase 73 Aspartate Amino Transf (AST/SGOT) 35 Alanine Aminotransferase (ALT/SGPT) 62 Total Bilirubin 0.6 Sodium Level 141 Potassium Level 3.7 Chloride Level 104 Carbon Dioxide Level 26.5 Anion Gap 11 Estimat Glomerular Filtration Rate 84 Total Creatine Kinase 137 Creatine Kinase MB 1.8 Troponin I LESS THAN 0.02 B-Type Natriuretic Peptide 21 Lipase 105 Result Diagram: 06/08/17 1310 06/08/17 1310 Imaging Last Impressions Chest X-Ray 06/08/17 0000 Signed Impressions: Service Date/Time: May 13:06 - CONCLUSION: Slight asymmetric elevation or eventration of right diaphragm and minimal right base parenchymal opacity which is likely chronic. MD Mayra Chungi VTE Risk Assessment Caprini VTE Risk Assessment: No/Low Risk (score <= 1) Caprini Risk Assessment Model Point Value = 1 Point Value = 2 Point Value = 3 Point Value = 5 Age 41-60 Minor surgery BMI > 25 kg/m2 Swollen legs Varicose veins or History of unexplained or recurrent spontaneous Oral contraceptives or hormone replacement Sepsis (< 1 month) Serious lung disease, including pneumonia (< 1 month) Abnormal pulmonary function Acute myocardial infarction Congestive heart failure (< 1 month) History of inflammatory bowel disease Medical patient at bed rest Age 61-74 Arthroscopic surgery Major open surgery (> 45 min) Laparoscopic surgery (> 45 min) Malignancy Confined to bed (> 72 hours) Immobilizing plaster cast Central venous access Age >= 75 History of VTE Family history of VTE Factor V Leiden Prothrombin [id number] Lupus anticoagulant Anticardiolipin antibodies Elevated serum homocysteine Heparin-induced thrombocytopenia Other congenital or acquired thrombophilia Stroke (< 1 month) Elective arthroplasty Hip, pelvis, or leg fracture Acute spinal cord injury (< 1 month) Prophylaxis Regimen Total Risk Factor Score Risk Level Prophylaxis Regimen 0-1 Low Early ambulation 2 Moderate Order ONE of the following: *Sequential Compression Device (SCD) *Heparin 5000 units SQ BID 3-4 Higher Order ONE of the following medications: *Heparin 5000 units SQ TID *Enoxaparin/Lovenox 40 mg SQ daily (WT < 150 kg, CrCl > 30 mL/min) *Enoxaparin/Lovenox 30 mg SQ daily (WT < 150 kg, CrCl > 10-29 mL/min) *Enoxaparin/Lovenox 30 mg SQ BID (WT < 150 kg, CrCl > 30 mL/min) AND/OR *Sequential Compression Device (SCD) 5 or more Highest Order ONE of the following medications: *Heparin 5000 units SQ TID (Preferred with Epidurals) *Enoxaparin/Lovenox 40 mg SQ daily (WT < 150 kg, CrCl > 30 mL/min) *Enoxaparin/Lovenox 30 mg SQ daily (WT < 150 kg, CrCl > 10-29 mL/min) *Enoxaparin/Lovenox 30 mg SQ BID (WT < 150 kg, CrCl > 30 mL/min) AND *Sequential Compression Device (SCD) Assessment and Plan Problem List: (1) Atrial fibrillation with RVR ICD Code: I48.91 - Unspecified atrial fibrillation Status: Acute Assessment and Plan This is a 56-year-old male who presented to the emergency department because of chest pressure, shortness of breath and dizziness. EKG shows A. fib RVR a New onset atrial fibrillation with RVR. Improved currently in sinus rhythm status post Cardizem boluses 2. Will start p.o. Cardizem and wean and discontinue heparin drip keep heart rate less than 100. Start aspirin [id number] VASC score of 1 for hypertension. Check echocardiogram, TSH and d-dimer( negative). Drug screen. Trend cardiac enzymes. EKG tracings interpreted by me first showed A. fib with RVR, third EKG with sinus rhythm incomplete RBBB. Obtain Lexiscan in the morning if patient rules out for OH. Avoid caffeinated drinks and alcohol abuse Uncontrolled hypertension. Improving on Cardizem drip. Restart Accupril but will hold hydrochlorothiazide for now as patient will be on Cardizem p.o. Alcohol abuse. Counseled. [facility] protocol. DVT prophylaxis with SCD and subcu heparin Discussed Condition With Patient and Joel Jalloh MD Jun 08, 2017 17:09
--- NOTE | 2017-06-08 17:12 | ECHRPT ---
Indication: afib/alutter CONCLUSIONS The left ventricular systolic function is normal with an estimated ejection fraction in the range of 55-60%. Mild concentric left ventricular hypertrophy. Normal left ventricular size. The left atrial size is mildly dilated. Trace aortic valve regurgitation. There is trace tricuspid valve regurgitation. The estimated pulmonary arterial pressure is 31 mmHg. BP: 131 / 84 HR: 74 Rhythm: Sinus MEASUREMENTS (Male / Female) Normal Values Technical Quality:Fair 2D ECHO LV Diastolic Diameter PLAX 5.4 cm 4.2 - 5.9 / 3.9 - 5.3 cm LV Systolic Diameter PLAX 3.9 cm IVS Diastolic Thickness 1.4 cm 0.6 - 1.0 / 0.6 - 0.9 cm LVPW Diastolic Thickness 1.2 cm 0.6 - 1.0 / 0.6 - 0.9 cm LV Relative Wall Thickness 0.5 RV Internal Dim ED PLAX 4.2 cm LVOT Diameter 2.5 cm LA Systolic Diameter LX 5.1 cm 3.0 - 4.0 / 2.7 - 3.8 cm LA Volume Index 21.8 cm/m 16 - 28 cm/m M-MODE Aortic Root Diameter MM 2.8 cm LA Systolic Diameter MM 5.1 cm LA Ao Ratio MM 1.8 AV Cusp Separation MM 2.1 cm DOPPLER AV Peak Velocity 136.0 cm/s AV Peak Gradient 7.4 mmHg LVOT Peak Velocity 97.0 cm/s LVOT Peak Gradient 3.8 mmHg AV Area Cont Eq pk 3.5 cm MV Area PHT 3.5 cm Mitral E Point Velocity 54.9 cm/s Mitral A Point Velocity 50.6 cm/s Mitral E to A Ratio 1.1 LV E' Lateral Velocity 10.7 cm/s Mitral E to LV E' Lateral Ratio 5.1 LV E' Septal Velocity 3.7 cm/s Mitral E to LV E' Septal Ratio 14.8 TR Peak Velocity 229.0 cm/s TR Peak Gradient 21.0 mmHg Right Atrial Pressure 10.0 mmHg Pulmonary Artery Systolic Pressu 31.0 mmHg Right Ventricular Systolic Press 31.0 mmHg FINDINGS LEFT VENTRICLE The left ventricular systolic function is normal with an estimated ejection fraction in the range of 55-60%. Mild concentric left ventricular hypertrophy. Normal left ventricular size. RIGHT VENTRICLE Normal right ventricular size and systolic function. LEFT ATRIUM The left atrial size is mildly dilated. RIGHT ATRIUM The right atrial size is normal. ATRIAL SEPTUM Normal atrial septal thickness without atrial level shunting by limited color doppler interrogation. AORTA The aortic root and proximal ascending aorta are normal in size on limited imaging. MITRAL VALVE Structurally normal mitral valve. No mitral valve stenosis or regurgitation. AORTIC VALVE Trileaflet aortic valve. Trace aortic valve regurgitation. TRICUSPID VALVE Structurally normal tricuspid valve. There is trace tricuspid valve regurgitation. The estimated pulmonary arterial pressure is 31 mmHg. PULMONARY VALVE No pulmonary valve regurgitation or stenosis. VESSELS The inferior vena cava is normal in size. PERICARDIUM No pericardial effusion. Champ Correa MD, FACC, [facility] [place] (Electronically Signed) Final Date:08 June 2017 17:11
[2017-06-08 17:27] LABS: BILIRUBIN, URINE NEG (NEG); BLOOD, URINE NEG (NEG); GLUCOSE,URINE NEG (NEG); KETONE, URINE NEG (NEG); NITRITE,URINE NEG (NEG); SQUAMOUS EPITHELIAL CELL URINE <1 /hpf (0-5); URINE COLOR LIGHT-YELLOW (YELLW/STRAW); URINE LEUKOCYTE ESTERASE NEG (NEG)
[2017-06-08] MEDS: LISINOPRIL 5 MG TAB PO SCH (20:29)
[2017-06-08] MEDS: DOCUSATE SODIUM 50 MG/SENNA 8.6 MG TAB PO SCH (20:31)
[2017-06-08] MEDS: SODIUM CHLORIDE 0.9% FLUSH 10 ML FLUSH IV FLUSH SCH (20:32)
[2017-06-08 23:33] LABS: TROPONIN I LESS THAN 0.02 NG/ML (0.02-0.05)
[2017-06-09] VITALS (19 sets, daily range): BP systolic 136–159; BP diastolic 82–105; PULSE 58–94; RESP 16–18; TEMP 97.9–98.6; O2SAT 95–97
[2017-06-09] MEDS: HEPARIN SODIUM - SQ 10,000 UNITS/ML VIAL SQ SCH ×2 (04:00→16:00)
[2017-06-09 06:44] LABS: AUTOMATED NEUTROPHIL # 3.2 TH/MM3 (1.8-7.7); BASOPHIL % 0.6 % (0.0-2.0); EOSINOPHIL # 0.2 TH/MM3 (0-0.4); EOSINOPHIL % 4.5 % (0.0-4.0); HEMATOCRIT 41.5 % (39.0-51.0); HEMOGLOBIN 14.8 GM/DL (13.0-17.0); LYMPH % 27.9 % (9.0-44.0); LYMPHOCYTE # 1.5 TH/MM3 (1.0-4.8); MEAN CELL VOLUME 95.7 FL (80.0-100.0); MEAN CORPUSCULAR HEMOGLOBIN 34.1 PG (27.0-34.0); MEAN CORPUSCULAR HGB CONC 35.6 % (32.0-36.0); MONO % 8.3 % (0.0-8.0); MONOCYTE # 0.4 TH/MM3 (0-0.9); NEUT % 58.7 % (16.0-70.0); PLATELET COUNT 186 TH/MM3 (150-450); RED BLOOD COUNT 4.33 MIL/MM3 (4.50-5.90); RED CELL DISTRIBUTION WIDTH 12.6 % (11.6-17.2); WHITE BLOOD COUNT 5.4 TH/MM3 (4.0-11.0)
[2017-06-09 07:05] LABS: BICARBONATE 27.1 MEQ/L (21.0-32.0); BLOOD UREA NITROGEN 13 MG/DL (7-18); CALCIUM 9.5 MG/DL (8.5-10.1); CHLORIDE 104 MEQ/L (98-107); CREATININE 0.84 MG/DL (0.60-1.30); GLOMERULAR FILTRATION RATE 95 ML/MIN (>89); GLUCOSE,RANDOM 101 MG/DL (74-106); SODIUM (NA) 140 MEQ/L (136-145)
[2017-06-09 07:10] LABS: TROPONIN I LESS THAN 0.02 NG/ML (0.02-0.05)
[2017-06-09] MEDS: LISINOPRIL 5 MG TAB PO SCH ×2 (08:47→22:27)
[2017-06-09] MEDS: DILTIAZEM HCL 30 MG TAB PO SCH ×4 (08:47→22:27)
[2017-06-09] MEDS: DOCUSATE SODIUM 50 MG/SENNA 8.6 MG TAB PO SCH ×2 (08:47→22:27)
[2017-06-09] MEDS: SODIUM CHLORIDE 0.9% FLUSH 10 ML FLUSH IV FLUSH SCH ×2 (08:47→22:28)
[2017-06-09] MEDS ORDERED: FOLIC ACID 1 MG TAB PO SCH (09:00)
[2017-06-09] MEDS ORDERED: THIAMINE HCL 100 MG TAB PO SCH (09:00)
[2017-06-09] MEDS ORDERED: ASPIRIN EC 325 MG TABEC PO SCH (09:00)
[2017-06-09] MEDS ORDERED: MULTIVITAMINS/MINERALS THERAPEUTIC TAB PO SCH (09:00)
[2017-06-09] MEDS ORDERED: REGADENOSON INJ 0.4 MG/5 ML SYR ONE (09:55)
--- NOTE | 2017-06-09 12:28 | HHI.PR ---
Subjective Remarks Follow-up new onset A. fib with RVR/uncontrolled hypertension 06/09/17-patient seen and examined, as any chest pain or shortness of breath. Currently rate control. BP within normal limit. Objective Vitals Vital Signs Date Time Temp Pulse Resp B/P (MAP) Pulse Ox O2 Delivery O2 Flow Rate FiO2 06/09/17 08:14 98.5 71 17 143/99 (114) 96 06/09/17 07:00 64 06/09/17 06:00 64 06/09/17 05:00 58 06/09/17 04:00 60 06/09/17 03:00 60 06/09/17 03:00 98.6 70 16 136/82 (100) 95 06/09/17 02:00 64 06/09/17 01:00 60 06/09/17 00:00 62 06/08/17 23:00 63 06/08/17 22:00 84 06/08/17 21:31 98.6 70 16 123/76 (92) 95 06/08/17 21:31 70 123/76 06/08/17 21:00 66 06/08/17 20:00 64 06/08/17 20:00 98.6 66 16 148/90 (109) 95 06/08/17 19:00 66 06/08/17 18:00 98.6 69 18 158/98 (118) 06/08/17 17:37 06/08/17 17:01 74 15 100 Nasal Cannula 2.00 06/08/17 16:24 74 17 121/70 (87) 98 Nasal Cannula 3.00 06/08/17 15:08 77 17 127/71 (89) 99 Room Air 06/08/17 15:05 21 06/08/17 13:59 99 132/69 06/08/17 13:35 126 06/08/17 13:27 89 15 06/08/17 13:17 93 17 160/110 (127) 06/08/17 13:07 115 170/126 (141) 06/08/17 13:02 189 15 159/114 (129) 97 Room Air 06/08/17 12:51 97.8 191 16 115/80 (92) 100 I/O 06/08/17 06/08/17 06/08/17 06/09/17 06/09/17 06/09/17 07:00 15:00 23:00 07:00 15:00 23:00 Intake Total 480 ml Output Total 1350 ml Balance -870 ml Intake Oral 480 ml Output Urine Total 1350 ml Result Diagram: 06/09/17 0501 06/09/17 0501 Imaging Last Impressions Chest X-Ray 06/08/17 0000 Signed Impressions: Service Date/Time: May 13:06 - CONCLUSION: Slight asymmetric elevation or eventration of right diaphragm and minimal right base parenchymal opacity which is likely chronic. Jong Wheatley MD Objective Remarks GENERAL: NAD SKIN: Warm and dry. HEAD: Normocephalic. EYES: No scleral icterus. No injection or drainage. NECK: Supple, trachea midline. No JVD or lymphadenopathy. CARDIOVASCULAR: Irregular Regular rate and rhythm without murmurs, gallops, or rubs. RESPIRATORY: Breath sounds equal bilaterally. No accessory muscle use. GASTROINTESTINAL: Abdomen soft, non-tender, nondistended. MUSCULOSKELETAL: No cyanosis, or edema. BACK: Nontender without obvious deformity. No CVA tenderness. Procedures none A/P Problem List: (1) Atrial fibrillation with RVR ICD Code: I48.91 - Unspecified atrial fibrillation Status: Acute Assessment and Plan 56-year-old man with New onset A. fib with RVR Currently rate controlled on Cardizem by mouth 30 mg 4 times a day [id number] score of 1 therefore will continue with ASA ACS ruled out per protocol with serial cardiac enzyme and EKGs Lexiscan stress test pending and Cardiology consult PRN 2-D echo pending Check lipid profile and treat accordingly Essential hypertension Currently normotensive Alcohol abuse Alcohol counseling cessation provided Continue with CIWA protocol, Noel Boss MD Jun 09, 2017 12:28
--- NOTE | 2017-06-09 13:09 | RADRPT ---
EXAM DATE/TIME: 06/09/2017 09:49 [place] COMPARISON: No previous studies available for comparison. INDICATIONS : Chest pain with shortness of breath for one day. Atrial fibrillation. Right bundle branch block. DOSE: 30.2 mCi Tc99m Myoview at stress. 10.3 mCi Tc99m Myoview at rest. 0.4 mg Lexiscan STRESS SYMPTOMS: None. EJECTION FRACTION: 63% MEDICAL HISTORY : Hypertension. SURGICAL HISTORY : Appendectomy. ENCOUNTER: Initial ACUITY: 1 day PAIN SCALE: 8/10 LOCATION: Midsternal chest TECHNIQUE: The patient underwent pharmacologic stress with infusion of prescribed dose. Continuous ECG tracing was monitored during stress. Gated SPECT imaging was performed after stress and conventional SPECT i maging was performed at rest. The examination was performed on a SPECT/CT scanner, both attenuation and non-corrected datasets were reviewed. FINDINGS: DISTRIBUTION: The maximum perfused segment at stress is in the septal wall. PERFUSION STUDY: Subtle perfusion defect in the mid anteroseptal wall during stress. GATED STUDY: There is intact wall motion and thickening without hypokinetic or dyskinetic segments. CONCLUSION: 1. Subtle focal anteroseptal wall ischemia. 2. Intact wall motion with EF of 63%. RISK CATEGORY: Low (<1% Annual Mortality Rate) Robbie Sears MD on June 09, 2017 at 11:54 Board Certified Radiologist. This report was verified electronically.
[2017-06-09] MEDS ORDERED: MIDAZOLAM HCL 2 MG/2 ML VIAL ONE (18:09)
[2017-06-09] MEDS ORDERED: HEPARIN-NS/PF FLUSH BAG 2,000 ML IV FLUSH ONE (18:09)
[2017-06-09] MEDS ORDERED: VERAPAMIL HCL 5 MG/2 ML VIAL ONE (18:09)
[2017-06-09] MEDS ORDERED: HEPARIN SODIUM - IV 10,000 UNITS/10 ML VIAL ONE (18:10)
[2017-06-09] MEDS ORDERED: NITROGLYCERIN INJ 5 ML ONE (18:10)
[2017-06-09] MEDS ORDERED: IOHEXOL 350 MG/ML 50 ML BTL (for Cath Lab) OTHER ONE (18:52)
--- NOTE | 2017-06-09 18:54 | CATHPROC ---
[email or web address] HIS Report Study Information Study Number Admission Scheduled Start Study Start [id number] Jun 08 2017 2:45PM 06/09/2017 Jun 09 2017 6:03PM [place] [facility] Cardiac Catheterization Admit Source Facility Department Emergency department [facility] Physician and Clinical Staff Initial Mk Byn[employer] Field Mechanic Valentina Burgos,RN Recorder James To,RT(R) Scrub Bing Bonilla,OPERATING ROOM AIDE TECH2 Procedures Performed Procedure Location (Site) Vessel Name Coronary Angiograms LCA Left Coronary Coronary Angiograms RCA Right Coronary Equipment Time Seismic Plotter Description Size Mfg Part Number Used/Scraped TRANSDUCER, TRUWAVE [id number] 18:31 ROWE HICKEY * Used W/STOCKCOCK *[id number] *[id number] *[id number] 18:31 [employer] PACK, CCL CUSTOM * Used *[id number] 18:31 [employer] SUPPORT, ARTERIAL ADULT [id number] *[id number] Used BAND, RADIAL COMPRESSION TR [id number] 18:45 [employer] MEDICAL 29CM Used LARGE 29 *[id number] 18:31 [employer] WIRE, EXCHANGE 260CM 3MMJ 260CM Used *[id number] 18:31 NAMIC MANIFOLD, 4 PORT * Used *[id number] 18:31 [employer]ED OMNIPAQUE, 350 MG, 150ML 150ML [id number] Used [id number] 18:31 [employer] MEDICAL BLANKET,WARM AIR CCL * Used *[id number] SHEATH, FR6 TRANSRADIAL [id number] 18:31 Design A FR 6 Used SLENDER 10CM *[id number] History: Allergies Allergy Reaction Percocet Nausea/Vomiting oxycodone Nausea/Vomiting acetaminophen Nausea/Vomiting History: Risk Factors Family History of Hypertension Dyslipidemia Previous PA Previous Heart Failure Premature CAD Yes No No No No Prior Valve Prior PCI Prior CABG Surgery No No No Cerebrovascular Peripheral Artery Chronic Lung On Dialysis Diabetes Disease Disease Disease No No No No No History: Stress Tests Stress or Imaging Studies Performed Yes Standard Exercise Stress Test No Stress Echo No Stress Test SPECT Stress Test SPECT Result Stress Test SPECT Ischemia Risk/Extent Yes Positive Intermediate Stress Test CMR No Cardiac CTA Coronary Calcium Score No No Labs Hgb (g/dl) Hct (%) WBC (l/cumm) Platelets (thousands) 11.60-17.00 35.00-51.00 4.00-11.00 150.00-450.00 14.8 41.5 5.4 186 Glucose (mg/dl) BUN (mg/dl) Creatinine (mg/dl) BUN:Creatinine (1:x) 74.00-106.00 7.00-18.00 0.50-1.30 10.00-20.00 101 13 0.8 16.3 Na (meq/l) K (meq/l) 136.00-145.00 3.50-5.10 140 3.6 INR (PTT:PT) 0.90-1.10 1 CPK-MB (ng/ML) 0.50-3.60 Not Drawn Medication Medication Total Dose (Bolus/Oral) Medication Total Dosage/Unit 1% XYLOCAINE 5 mL FENTANYL 25 mcg RADIAL COCKTAIL 5 mL (Bolus) VERSED 0.5 mg Medications (Bolus/Oral) Medication Time Given Dosage/Unit Administered By Reason 1% XYLOCAINE 06/09/2017 6:29:10 PM 5 mL Mk Ventura 5 mL 1% XYLOCAINE given in lab by Mk Ventura in Right Radial via Subcutaneous. Ordered by Mk Madison VERSED 06/09/2017 6:29:50 PM 0.5 mg Valentina Burgos 0.5 mg VERSED given in lab by Valentina Burgos RN in Left Antecubital via Peripheral IV. Ordered by Mk Madison FENTANYL 06/09/2017 6:30:23 PM 25 mcg Valentina Burgos 25 mcg FENTANYL given in lab by Valentina Burgos RN via Peripheral IV. Ordered by Mk Ventura Ntg 200mcg Verapamil 2.5mg Heparin RADIAL COCKTAIL 06/09/2017 6:32:10 PM 5 mL (Bolus) Valentina Burgos 3000U 5 mL (Bolus) RADIAL COCKTAIL given in lab by Valentina Burgos RN via Radial. Using [Solution Name]. Or dered by Mk Ventura Reason: Ntg 200mcg Verapamil 2.5mg Heparin 4400U. Medication (Drip) Medication Time Given Dosage/Unit Concentration/Unit Diluent (ml) Solution IV Solutions 06/09/2017 6:14:31 PM 0 mL (IV) 500 NaCl .9 Patient arrived on IV Solutions given by Mk Ventura in Left Antecubital via Peripheral IV. P ump/Drip Flow = 20 ml/hr using NaCl .9. Ordered by Mk Ventura. Initial Case Assessment Cardiovascular HR Rhythm NIBP Chest Pain 70 sr 171/105 0 Edema Present Skin color Skin None Normal Warm Dry Circulatory - Right Pulses Dorsalis Pedis Femoral Radial 3 3 3 Scale (0,1,2,3,4,d) Circulatory - Left Pulses Dorsalis Pedis Femoral Radial 3 3 Scale (0,1,2,3,4,d) Neurological State Oriented to time-place- Alert Moves all extremities person Respiration - General Respiration Rate SpO2 (%) O2 (lpm) (B/min) 18 98 0 Final Case Assessment Cardiovascular HR Rhythm NIBP Chest Pain 75 sr 126/70 0 Edema Present Skin color Skin None Normal Warm Dry Circulatory - Right Pulses Dorsalis Pedis Femoral Radial 3 3 3 Scale (0,1,2,3,4,d) Circulatory - Left Pulses Dorsalis Pedis Femoral Radial 3 3 Scale (0,1,2,3,4,d) Neurological State Oriented to time-place- Alert Moves all extremities person Respiration - General Respiration Rate SpO2 (%) O2 (lpm) (B/min) 16 96 0 Chronological Log Time Study Chronological Log 18:04:12 Patient arrived via Bed. 18:04:13 Patient Name, D.O.B, / Armband Verified By R.N. 18:04:14 Consent signed by the physician and the patient and verified by the [facility] staff. 18:04:15 Pre-op and post- op instructions given; patient acknowledges understanding of instructions. 18:04:17 Verbal Stimulation=2 Physical Stimulation=2 Airway=2 Respiration=2 TOTAL=8. (0=absent, 1=li mited, 2=present) 18:04:27 Presedation assessment performed by [facility] RN. 18:04:34 Patient has been NPO for Less than 6Hrs. 18:04:36 Skin Breakdown-none present per patient. 18:04:48 Patient Warmer Placed on the Table. Vitals capture started with the following parameters, Patient=Adult, Interval=5 min, Initial Pr lmufdr=107 mmHg, 18:10:36 Deflation Rate=5 mmHg, Cuff placed on Unknown 18:11:57 HR=68 bpm, EYKV=552/103 mmhg, SpO2=96.0 %, Resp=20 B/min, Edmonds=2 18:12:27 Reference ECG taken 18:14:11 A # 18 IV was noted in the Antecubital (left). Grade = 0 18:14:23 A # 20 IV was noted in the Antecubital (right). Grade = 0 Patient arrived on IV Solutions given by Mk Ventura in Left Antecubital via Peripheral IV. Pump/Drip Flow = 20 18:14:31 ml/hr using NaCl .9. Ordered by Mk Ventura. 18:15:56 History and physical on the chart or being dictated. Assessment: Initial Case, HR=70 BPM, Rhythm=sr, HKXN=497/105 mmhg, Chest Pain=0, Edema=None, Co arianna=Normal, Skin = Warm, Dry Right Pulses: Kvng Ped=3, Femoral=3, Radial=3 18:15:59 Left Pulses: Kvng Ped=3, Femoral=3 Neurological: State=Alert, Ox3, AVILA Respiration: Resp=18 B/min, SpO2=98 %, O2=0 lpm 18:16:17 HR=71 bpm, ZJJK=665/105 mmhg, SpO2=95.0 %, Resp=23 B/min, Edmonds=2 18:17:25 Bilateral groins and right radial prepped with 2% chlorhexidine, and draped after a 3 minut e waiting time. 18:19:26 Pressure channel 1 zeroed. 18:19:27 MD paged 18:21:18 HR=71 bpm, VWWZ=945/103 mmhg, SpO2=98.0 %, Resp=10 B/min, Edmonds=2 18:21:35 MD arrived. 18:26:15 HR=78 bpm, MZCH=655/105 mmhg, SpO2=94.0 %, Resp=18 B/min, Edmonds=2 Time Out. Correct patient, correct procedure, correct physician, power injector not loaded with contrast with surgical 18:28:15 team present. Time Out Concurred by MD and individual staff in procedure. Not loaded at this ti me. 18:28:58 Presedation re-assessment performed by [facility] RN. 18:29:00 Case Start 18:29:01 Verbal Stimulation=2 Physical Stimulation=2 Airway=2 Respiration=2 TOTAL=8. (0=absent, 1=li mited, 2=present) 5 mL 1% XYLOCAINE given in lab by Mk Ventura in Right Radial via Subcutaneous. Ordered by Lorenzo : Mk Simon 0.5 mg VERSED given in lab by Valentina Burgos RN in Left Antecubital via Peripheral IV. Ordered by Mk Ventura 18:29:50 G. 18:30:23 25 mcg FENTANYL given in lab by Valentina Burgos RN via Peripheral IV. Ordered by Mk Ventura 18:30:44 Access site was Radial Artery. right radial A SHEATH, FR6 TRANSRADIAL SLENDER 10CM FR 6 was advanced into the Radial (right) using the Perc utaneous 18:31:35 technique. 18:32:07 HR=75 bpm, CYWU=864/90 mmhg, SpO2=96.0 %, Resp=18 B/min, Edmonds=2 5 mL (Bolus) RADIAL COCKTAIL given in lab by Valentina Burgos RN via Radial. Using [Solution Nam e]. Ordered by :32:10 Mk Ventura Reason: Ntg 200mcg Verapamil 2.5mg Heparin 4400U. A JR 4.0 INFINITI CATHETER FR 5 was advanced over a wire. OMNIPAQUE, 350 MG, 150ML 150ML was us ed for 18:33:26 injections. Recorded Pressure: LV, Ao, VR=152, Condition=Condition 1 18:34:04 (Left Ventricle) LV 124/0/8, (Aorta) Ao 138/98/119 Recorded Pressure: Ao, HR=91, Condition=Condition 1 18:34:55 (Aorta) Ao 129/93/111 18:35:04 The RCA was injected and visualized at various angles. OMNIPAQUE, 350 MG, 150ML 150ML used . After removing the current catheter a JL 3.5 INFINITI CATHETER FR 5 was advanced over a WIRE, E XCHANGE 260CM 18:35:42 3MMJ 260CM. 18:36:19 HR=86 bpm, MVQG=801/92 mmhg, SpO2=93.0 %, Resp=17 B/min, Edmonds=2 18:37:24 The LCA was injected and visualized at various angles. OMNIPAQUE, 350 MG, 150ML 150ML used . 18:41:03 Catheter was removed OTW 18:41:20 HR=69 bpm, JHOS=353/70 mmhg, QnP7=102.0 %, Resp=28 B/min, Edmonds=2 18:41:46 Case End Assessment: Final Case, HR=75 BPM, Rhythm=sr, RZEB=024/70 mmhg, Chest Pain=0, Edema=None, Color =Normal, Skin = Warm, Dry Right Pulses: Kvng Ped=3, Femoral=3, Radial=3 18:42:01 Left Pulses: Kvng Ped=3, Femoral=3 Neurological: State=Alert, Ox3, AVILA Respiration: Resp=16 B/min, SpO2=96 %, O2=0 lpm 18:42:48 Catheter(s) removed without difficulty Radial Compression Device Used. 13 mLs of air placed in BAND, RADIAL COMPRESSION TR LARGE 29 2 9CM. Affected 18:42:51 hand 97 % O2 saturation. 18:43:03 No case complications noted. 18:43:05 Cine recording checked. 18:43:09 Bedside Report will be given. 18:46:44 HR=67 bpm, BOLC=086/117 mmhg, SpO2=95.0 %, Resp=18 B/min, Edmonds=2 18:47:23 Vitals capture stopped. 18:50:15 [facility] End Study - Contrast Media Used In Study Contrast Total Opened (mL) Total Used (mL) Total Wasted (mL) Omnipaque 50 50 0 End Study - Maximum Contrast Load Max Contrast Load (mL) 687.5 End Study - Radiation Exposure Fluoro Time (minutes) 2.1 End Study - Patient Disposition Complications Transferred To Telemetry Bed
[2017-06-09] MEDS ORDERED: MISC INFORMATION XX ONE (19:00)
[2017-06-09] MEDS ORDERED: DILT31TA PO (20:38)
[2017-06-09] MEDS ORDERED: ASPI81TA23 PO (20:38)
[2017-06-09] MEDS ORDERED: LISI-519 PO (20:38)
--- NOTE | 2017-06-09 20:40 | HHI.PR ---
Addendum to Inpatient Note Addendum Reason: Additional Documentation Additional Information Cardiology was consulted 2/2 abnormal Lexiscan stress test and patient underwent negative Heart Catheterization without any stent placement. Stable for discharge Discharge patient to home Condition on discharge: Improved Regular Diet as tolerated Ad Hui activity Rx written:see EMR Follow-up with primary care physician in 1 week Cardiology per protocol Noel De La Cruz MD Jun 09, 2017 20:40
--- NOTE | 2017-06-09 23:30 | MB ---
cc: Mk Ventura DO DATE: 06/09/2017 REASON FOR CONSULTATION: Atrial fibrillation, abnormal stress test. HISTORY OF PRESENT ILLNESS: Steven Rodriguez is a pleasant 56-year-old male who presented to [facility] Emergency Room on 06/08/2017 due to chest pain. He states that he was having moderate retrosternal chest pain associated with shortness of breath and dizziness. Upon arrival to the emergency room, he was found to be in atrial fibrillation with a rapid ventricular response and received 2 doses of IV Cardizem and started on a Cardizem drip. He has since converted back to sinus rhythm. Once his heart rates were controlled chest pain seemed to go away. He denies any other complaints. He then underwent a stress test which showed possible ischemia and so I was consulted for consideration of cardiac catheterization. PAST MEDICAL HISTORY: 1. Hypertension. 2. Chronic back pain. PAST SURGICAL HISTORY: 1. Appendectomy. 2. Vasectomy. 3. Back surgery. ALLERGIES: 1. TYLENOL. 2. OXYCODONE. MEDICATIONS: 1. Quinapril 5 mg b.i.d. 2. Hydrochlorothiazide. FAMILY HISTORY: Denies sudden cardiac within the family. SOCIAL HISTORY: The patient denies tobacco or drug abuse. He does drink around 6 beers a day. REVIEW OF SYSTEMS: Fourteen systems were reviewed including osteopathic. Pertinent positives and negatives above, otherwise negative. PHYSICAL EXAMINATION: VITAL SIGNS: Temperature 97.9, heart rate 79, blood pressure 146/96, respirations 18, pulse oximetry 95% on room air. GENERAL: The patient appears well, in no acute distress. Alert, awake and oriented x 3. HEENT: Extraocular muscles intact. Mucous membranes moist. NECK: Supple. No JVD at 45 degrees. No carotid bruits heard bilaterally. Carotid stroke is brisk in nature. HEART: Regular rate and rhythm. Positive first and second heart sounds with no noted murmurs, gallops or rubs. LUNGS: Clear to auscultation bilaterally. No wheezes, rales or rhonchi. ABDOMEN: Soft, nontender, nondistended. No organomegaly noted. EXTREMITIES: Show no clubbing, cyanosis or edema. Femoral and distal pulses are intact bilaterally. NEUROLOGIC: No focal deficits. SKIN: Warm, dry and intact. OSTEOPATHIC: No kyphoscoliosis, lordosis or paraspinal tender points. LABORATORY DATA: Hemoglobin 14.8, hematocrit 41.5, platelets 186. Potassium 3.6, BUN 13, creatinine 0.85. Troponin negative x 3. TSH 2.41. Electrocardiogram (06/09/2017 at 0126) sinus rhythm, nonspecific ST-T wave changes. IMPRESSION: 1. New onset atrial fibrillation with rapid ventricular response. 2. Chest pain. 3. Abnormal stress test. 4. Hypertension. 5. Alcohol abuse. RECOMMENDATIONS: 1. Mr. Rodriguez presented with atrial fibrillation with rapid ventricular response and has converted to sinus rhythm. 2. His overall CHADS-VASc score equals 1 and so he will be recommended aspirin 81 mg daily. 3. He had sodium abnormal stress test and because of this he will be recommended cardiac catheterization. Risks, benefits and alternatives have been discussed with him. 4. He has undergone an echocardiogram which showed an ejection fraction of 55% to 60%, mild concentric LVH and trace aortic and tricuspid valve regurgitation. 5. I did speak to him about alcohol potentiating his atrial fibrillation, especially if he binge drinks and he will attempt to decrease the amount that he drinks. 6. Further recommendations will be made after coronary visualization. Thank you for allowing me to see Steven Rodriguez. If there are any questions, please do not hesitate to call. Mk Ventura, VGP/rt , 11:09 PM , 11:29 PM
--- NOTE | 2017-06-10 00:46 | MA ---
cc: Mk Ventura DO DATE: 06/09/2017 PROCEDURE: Left heart catheterization, coronary angiogram, moderate sedation 10 minutes. PREPROCEDURE DIAGNOSES: Abnormal stress test, chest pain, atrial fibrillation. POSTPROCEDURE DIAGNOSIS: Mild coronary artery disease. MEDICATIONS: Versed 0.5 mg, fentanyl 25 mcg, heparin 4400 units, nitroglycerin 200 mcg, verapamil 2.5 mg. CONTRAST USED: 50 mL FLUOROSCOPY: 2.1 minutes. MODERATE SEDATION: 10 minutes. ESTIMATED BLOOD LOSS: 10 mL PROCEDURAL SUMMARY: Steven Rodriguez is a pleasant 56-year-old male who presented to [facility] Emergency Room and was found to be in atrial fibrillation with rapid ventricular response. He did endorse some chest pain and he underwent stress testing which showed possible anterior ischemia. Because of this, he was recommended cardiac catheterization. Risks, benefits and alternatives were explained to him and he consented to such. He was brought to the lab and prepped in the usual sterile fashion. The right radial artery was accessed using a modified Seldinger technique and placement of a 5/6 Portuguese Slender sheath. This is easily aspirated and flushed. A JR4 was advanced over a J-wire to the ascending aorta and across the aortic valve for measurement of left ventricular pressure. This was pulled back across the aortic valve showing no significant gradient of aortic stenosis. JR4 was used for selective angiography of the right coronary artery system. This is exchanged out for a JL3.5, which was used for selective angiography of the left coronary artery system. JL3.5 was removed over a J wire. Radial band was placed over the arteriotomy site for hemostasis. The patient left the cathode maker cardiovascularly stable. FINDINGS: LEFT MAIN: Normal size vessel with adequate reflux. It bifurcates into an LAD and circumflex. LEFT ANTERIOR DESCENDING: Moderate to large size vessel with mild tortuosity throughout. He has mild luminal irregularities in the distal portion, but no significant disease. It gives off 2 diagonals with the first diagonal being overall large and no significant disease and the second diagonal being relatively small. LEFT CIRCUMFLEX: Moderate to large size vessel. It has mild luminal irregularities throughout the proximal portion. Distally it gives off 2 major obtuse marginals with overall tortuosity, but no significant disease. RIGHT CORONARY ARTERY: Normal size vessel with mild luminal irregularities, but no significant disease. Distally it gives off a PDA and a few small posterior lateral branches which overall are tortuous, but no significant disease. LEFT VENTRICULAR END DIASTOLIC PRESSURE: 8. IMPRESSION: 1. New onset atrial fibrillation. 2. Chest pain. 3. Abnormal stress test. 4. Minimal coronary artery disease as above. RECOMMENDATIONS: 1. Mr. Rodriguez appears to have minimal coronary artery disease as above. 2. He will be treated with aspirin therapy for his atrial fibrillation as he has a CHADS-VASc score of 1. 3. From a cardiovascular standpoint, he may be discharged 1 hour after his TR band is removed. 4. I spoke to him about not lifting more than 10 pounds for 3 days with his right hand. Thank you for allowing me to see Steven Rodriguez. If there are any questions, please do not hesitate to call. Mk Ventura DO VGP/rt , 12:12 AM , 12:44 AM
--- NOTE | 2017-06-10 21:54 | EKG ---
Date Performed: 06/08/2017 Time Performed: 13:04:23 PTAGE: 56 years EKG: SINUS TACHYCARDIA WITH OCCASIONAL VENTRICULAR PREMATURE COMPLEXES WITH OCCASIONAL SUPRAVENT RICULAR PREMATURE COMPLEXES POSSIBLE LEFT ATRIAL ENLARGEMENT INCOMPLETE RIGHT BUNDLE BRANCH BLOCK MOD ERATE ST DEPRESSION ABNORMAL ECG NO PREVIOUS TRACING DOCTOR: Manan Hurtado Interpretating Date/Time 06/10/2017 21:53:15
--- NOTE | 2017-06-10 21:57 | EKG ---
Date Performed: 06/08/2017 Time Performed: 15:26:57 PTAGE: 56 years EKG: Sinus rhythm INCOMPLETE RIGHT BUNDLE BRANCH BLOCK BORDERLINE ECG Compared to PREVIOUS TRACING , previously noted supraventricular tachycardia is no longer present. VT EVIOUS TRACIN06/08/2017 13.05.10 DOCTOR: Manan Hurtado Interpretating Date/Time 06/10/2017 21:55:26
--- NOTE | 2017-06-10 21:57 | EKG ---
Date Performed: 06/09/2017 Time Performed: 01:26:36 PTAGE: 56 years EKG: Sinus rhythm Septal T wave changes are nonspecific Borderline ECG Since PREVIOUS TRACING , no significant change noted PREVIOUS TRACIN06/08/2017 15.26.57 DOCTOR: Manan Hurtado Interpretating Date/Time 06/10/2017 21:55:49
--- NOTE | 2017-06-10 21:57 | EKG ---
Date Performed: 06/08/2017 Time Performed: 13:05:10 PTAGE: 56 years EKG: SUPRAVENTRICULAR TACHYCARDIA INTRAVENTRICULAR CONDUCTION DELAY ABNORMAL ECG Compared to PREVIOUS TRACING , patient is now in a rapid supraventricular rate that is regular, sugge stive of supraventricular tachycardia. There is evidence of slowing of this rhythm for the last beats on the tracing. PREVIOUS TRACIN06/08/2017 13.04 DOCTOR: Manan Hurtado Interpretating Date/Time 06/10/2017 21:54:50
== END 2017-06-09 23:37 | disposition home or self-care (01) | DRG 287 ==
LOC: NEPE 12:47 → NEDA 14:45 → HCIS 17:47
PROVIDERS: ADMIT Family Medicine; ATTEND Family Medicine
PROC: B2111ZZ Fluoroscopy of Multiple Coronary Arteries using Low Osmolar Contrast (ICD-10-PCS; principal; 2017-06-09)
PROC: 4A023N7 Measurement of Cardiac Sampling and Pressure, Left Heart, Percutaneous Approach (ICD-10-PCS; 2017-06-09)
DX: I48.91 Unspecified atrial fibrillation (principal); I10 Essential (primary) hypertension; M51.26 Other intervertebral disc displacement, lumbar region; F10.10 Alcohol abuse, uncomplicated; I25.10 Atherosclerotic heart disease of native coronary artery without angina pectoris
CPT/HCPCS: 71045; 78452; 80048; 80053; 80307; 81001; 82550; 82552; 83690; 83735; 83880; 84443; 84484; 85025; 85379; 85610; 85730; 93005; 93017; 93306; 93458; 96365; 96375; 99152; A9502; C1769; C1893; J0153; J1644; J2250; J2785; J3010; Q9967

== ENCOUNTER 2018-01-21 12:59 | Inpatient (IN) ==
--- NOTE | 2018-01-21 13:23 | ED ---
HPI General Chief Complaint: Neuro Symptoms/Deficit Stated Complaint: Numbness left of face/left of body Time Seen by Provider: 01/21/18 13:23 Source: patient Mode of arrival: ambulatory Limitations: no limitations History of Present Illness HPI narrative: C/O PALPITATIONS ONSET SEVERAL HOURS AGO NOW HE HAS TINGLING TO FACE AND BODY MD complaint: Reports palpitations and irregular heart beat Duration: now resolved Severity: severe Context: Reports occurred during rest Arrhythmia history: Reports atrial fibrillation Associated symptoms: Reports paresthesias Related Data Home Medications Medication Instructions Recorded Confirmed diltiazem HCl 120 mg PO DAILY 01/21/18 01/21/18 quinapril 20 mg PO BID 01/21/18 01/21/18 Allergies Allergy/AdvReac Type Severity Reaction Status Date / Time acetaminophen AdvReac Intermediate Nausea/Vomi Verified 01/21/18 13:20 ting oxycodone AdvReac Intermediate Nausea/Vomi Verified 01/21/18 13:20 ting Review of Systems ROS: all other systems reviewed are negative [facility] Medical History Medical History A-fib (Acute) Hypertension (Acute) Surgical History Surgical History History of vasectomy (Acute) Hx of appendectomy (Acute) Social History Social History Substance History: No History of Abuse Smoking Status: Never smoker How Often Do You Have a Drink Containing Alcohol: 2 to 3 times a week Recent Travel in [place] within the Last 8 Weeks: No Recent Out of Country Travel within the Last 8 Weeks: No Immunization History Tetanus Immunization: Unsure Exam Narrative Exam Narrative: GENERAL: Well-nourished, well-developed patient in no apparent distress. SKIN: Warm and dry. HEAD: Atraumatic. Normocephalic. EYES: Pupils equal and round. No scleral icterus. No injection or drainage. ENT: No nasal bleeding or discharge. Mucous membranes pink and moist. NECK: Trachea midline. No JVD. CARDIOVASCULAR: Regular rate and rhythm. no rubs or gallops RESPIRATORY: No accessory muscle use. Clear to auscultation. Breath sounds equal bilaterally. GASTROINTESTINAL: Abdomen soft, non-tender, nondistended. No rebound or guarding MUSCULOSKELETAL: Extremities without clubbing, cyanosis, or edema. No obvious deformities. NEUROLOGICAL: Awake and alert. No obvious cranial nerve deficits. Motor grossly within normal limits. Five out of 5 muscle strength in the arms and legs. Normal speech. PSYCHIATRIC: Appropriate mood and affect; insight and judgment normal. Course Initial Documented Vital Signs Temperature 98.3 F 01/21/18 13:02 Pulse Rate 82 01/21/18 13:02 Respiratory Rate 16 01/21/18 13:02 Blood Pressure 172/86 H 01/21/18 13:02 Pulse Oximetry 96 01/21/18 13:02 Last Documented Vital Signs Temperature 98.3 F 01/21/18 13:02 Pulse Rate 79 01/21/18 13:22 Respiratory Rate 16 01/21/18 13:22 Blood Pressure 143/96 H 01/21/18 13:22 Pulse Oximetry 95 01/21/18 13:22 Medical Decision Making MDM Narrative Medical decision making narrative: No leukocytosis no anemia no abnormal platelet count. Coagulation profile within normal limits First set of cardiac enzymes negative Electrolytes, normal kidney liver functions Tox screen negative Chest x-ray read by radiologist as no evidence of acute cardiopulmonary process Medical Screen Exam Complete: Yes Emergency Medical Condition: Yes Medical Records Medical records reviewed: Yes I reviewed the patient's medical records. Lab Data Result diagrams: 01/21/18 13:30 01/21/18 13:30 Lab Results 01/21/18 01/21/18 01/21/18 Range/Units 13:20 13:30 13:30 WBC 9.7 (4.0-11.0) th/mm3 RBC 4.41 L (4.50-5.90) mil/mm3 Hgb 15.5 (13.0-17.0) gm/dL Hct 44.0 (39.0-51.0) % MCV 99.9 (80.0-100.0) fL MCH 35.1 H (27.0-34.0) pg MCHC 35.1 (32.0-36.0) % RDW 12.1 (11.6-17.2) % Plt Count 184 (150-450) th/mm3 MPV 9.5 (7.0-11.0) fL Neut % (Auto) 78.6 H (16.0-70.0) % Lymph % (Auto) 12.8 (9.0-44.0) % Trigg % (Auto) 6.7 (0.0-8.0) % Eos % (Auto) 1.6 (0.0-4.0) % Baso % (Auto) 0.3 (0.0-2.0) % Neut # (Auto) 7.6 (1.8-7.7) th/mm3 Lymph # (Auto) 1.2 (1.0-4.8) th/mm3 Trigg # (Auto) 0.7 (0.0-0.9) th/mm3 Eos # (Auto) 0.2 (0.0-0.4) th/mm3 Baso # (Auto) 0.0 (0.0-0.2) th/mm3 WBC Differential . Differential Comment Auto diff final PT 10.2 (9.8-11.6) sec INR 1.0 Ratio APTT 26.4 (23.4-31.7) sec Sodium (136-145) meq/L Potassium (3.5-5.1) meq/L Chloride (98-107) meq/L Carbon Dioxide (21.0-32.0) meq/L Anion Gap (5-15) meq/L BUN (7-18) mg/dL Creatinine (0.60-1.30) mg/dL Estimated GFR (>89) mL/min Random Glucose (74-106) mg/dL Calcium (8.5-10.1) mg/dL Total Bilirubin (0.2-1.0) mg/dL AST (15-37) U/L ALT (12-78) U/L Alkaline Phosphatase (45-117) U/L Total Creatine Kinase (39-308) U/L Troponin I (0.02-0.05) ng/mL Total Protein (6.4-8.2) g/dL Albumin (3.4-5.0) g/dL Urine Opiates Screen Neg (Neg) Ur Barbiturates Screen Neg (Neg) Ur Amphetamines Screen Neg (Neg) U Benzodiazepines Scrn Neg (Neg) Urine Cocaine Screen Neg (Neg) U Cannabinoids Screen Neg (Neg) 01/21/18 Range/Units 13:30 WBC (4.0-11.0) th/mm3 RBC (4.50-5.90) mil/mm3 Hgb (13.0-17.0) gm/dL Hct (39.0-51.0) % MCV (80.0-100.0) fL MCH (27.0-34.0) pg MCHC (32.0-36.0) % RDW (11.6-17.2) % Plt Count (150-450) th/mm3 MPV (7.0-11.0) fL Neut % (Auto) (16.0-70.0) % Lymph % (Auto) (9.0-44.0) % Trigg % (Auto) (0.0-8.0) % Eos % (Auto) (0.0-4.0) % Baso % (Auto) (0.0-2.0) % Neut # (Auto) (1.8-7.7) th/mm3 Lymph # (Auto) (1.0-4.8) th/mm3 Trigg # (Auto) (0.0-0.9) th/mm3 Eos # (Auto) (0.0-0.4) th/mm3 Baso # (Auto) (0.0-0.2) th/mm3 WBC Differential Differential Comment PT (9.8-11.6) sec INR Ratio APTT (23.4-31.7) sec Sodium 141 (136-145) meq/L Potassium 3.7 (3.5-5.1) meq/L Chloride 105 (98-107) meq/L Carbon Dioxide 27.8 (21.0-32.0) meq/L Anion Gap 8 (5-15) meq/L BUN 13 (7-18) mg/dL Creatinine 0.79 (0.60-1.30) mg/dL Estimated GFR Greater than 89 (>89) mL/min Random Glucose 111 H (74-106) mg/dL Calcium 9.5 (8.5-10.1) mg/dL Total Bilirubin 0.5 (0.2-1.0) mg/dL AST 31 (15-37) U/L ALT 66 (12-78) U/L Alkaline Phosphatase 80 (45-117) U/L Total Creatine Kinase 59 (39-308) U/L Troponin I Less than 0.02 L (0.02-0.05) ng/mL Total Protein 7.2 (6.4-8.2) g/dL Albumin 3.8 (3.4-5.0) g/dL Urine Opiates Screen (Neg) Ur Barbiturates Screen (Neg) Ur Amphetamines Screen (Neg) U Benzodiazepines Scrn (Neg) Urine Cocaine Screen (Neg) U Cannabinoids Screen (Neg) Imaging Data Radiologist's impression: Chest X-Ray 01/21/18 13:19 CONCLUSION: No evidence of acute cardiopulmonary process. ECG Data EKG Prior to Arrival: No Attestation: I personally reviewed and interpreted this ECG as follows: Prior ECG tracings: not available for review Interpretation: Normal sinus rhythm, 71 bpm, incomplete right bundle branch block, no evidence of any acute ST elevation ID pattern. Discharge Plan Physicians Team ED Provider: Abdullahi Hicks Rxs /Orders / Referrals /Forms Prescriptions: No Action diltiazem HCl 120 mg Tablet 120 mg PO DAILY RF: 0 quinapril 20 mg Tablet 20 mg PO BID RF: 0 Status ED Status: With Doctor
[2018-01-21 13:40] LABS: Baso % (Auto) 0.3 % (0.0-2.0); Eos # (Auto) 0.2 th/mm3 (0.0-0.4); Eos % (Auto) 1.6 % (0.0-4.0); Hemoglobin 15.5 gm/dL (13.0-17.0); Lymph # (Auto) 1.2 th/mm3 (1.0-4.8); Lymph % (Auto) 12.8 % (9.0-44.0); Mean Corpuscular HGB Conc 35.1 % (32.0-36.0); Mean Corpuscular Hemoglobin 35.1 pg (27.0-34.0); Mean Corpuscular Volume 99.9 fL (80.0-100.0); Mean Platelet Volume 9.5 fL (7.0-11.0); Mono # (Auto) 0.7 th/mm3 (0.0-0.9); Mono % (Auto) 6.7 % (0.0-8.0); Neut # (Auto) 7.6 th/mm3 (1.8-7.7); Neut % (Auto) 78.6 % (16.0-70.0); Platelet Count 184 th/mm3 (150-450); Red Blood Count 4.41 mil/mm3 (4.50-5.90); Red Cell Distribution Width 12.1 % (11.6-17.2); White Blood Count 9.7 th/mm3 (4.0-11.0)
[2018-01-21 13:46] LABS: Activated Partial Thrombo Time 26.4 sec (23.4-31.7); Prothrombin Time 10.2 sec (9.8-11.6)
[2018-01-21 13:52] LABS: Amphetamine Screen,Urine Neg (Neg); Barbiturate Screen,Urine Neg (Neg); Cannabinoid Screen,Urine Neg (Neg); Cocaine Screen,Urine Neg (Neg)
[2018-01-21 13:57] LABS: Alanine Aminotransferase 66 U/L (12-78); Albumin 3.8 g/dL (3.4-5.0); Anion Gap 8 meq/L (5-15); Aspartate Aminotransferase 31 U/L (15-37); Blood Urea Nitrogen 13 mg/dL (7-18); Calcium 9.5 mg/dL (8.5-10.1); Carbon Dioxide 27.8 meq/L (21.0-32.0); Chloride 105 meq/L (98-107); Glomerular Filtration Rate Greater Than 89 mL/min (>89); Glucose,Random 111 mg/dL (74-106); Potassium 3.7 meq/L (3.5-5.1); Sodium 141 meq/L (136-145)
[2018-01-21 14:01] LABS: Alkaline Phosphatase 80 U/L (45-117); Total Protein 7.2 g/dL (6.4-8.2)
--- NOTE | 2018-01-21 14:03 | XR ---
EXAM DATE: 01/21/2018 1:43 PM EST AGE/SEX: 57 years / Male INDICATIONS: Chest pain, numbness/tingling sensation on left side and shortness of breath. CLINICAL DATA: This is the patient's initial encounter. Patient reports that signs and symptoms have been present for 2 days and indicates a pain score of 7/10. MEDICAL/SURGICAL HISTORY: Hypertension. AFIB. None. [place] [facility] [place] . FINDINGS: A single AP view of the chest demonstrates the lungs to be symmetrically aerated without evidence of mass, infiltrate or effusion. The cardiomediastinal contours are unremarkable. Osseous structures a re intact. CONCLUSION: No evidence of acute cardiopulmonary process. Electronically signed by: Talib Briceño MD 01/21/2018 2:02 PM EST
[2018-01-21 14:11] LABS: Opiate Screen,Urine Neg (Neg)
[2018-01-21 14:11] LABS: Creatine Kinase 59 U/L (39-308)
[2018-01-21] MEDS ORDERED: Acetaminophen 325 MG Tablet PO PRN (14:49)
--- NOTE | 2018-01-21 15:53 | CT ---
EXAM DATE: 01/21/2018 3:47 PM EST AGE/SEX: 57 years / Male INDICATIONS: Resolved numbness left cheek CLINICAL DATA: This is the patient's initial encounter. Patient reports that signs and symptoms have been present for 1 day and indicates a pain score of 0/10. MEDICAL/SURGICAL HISTORY: Hypertension. Appendectomy. RADIATION DOSE: 56.35 CTDI (mGy) COMPARISON: No prior exams available for comparison. TECHNIQUE: CT of the head without contrast. Using automated exposure control and adjustment of the mA and/or kV according to patient size, radiation dose was kept as low as reasonably achievable to ob tain optimal diagnostic quality images. DICOM format image data is available electronically for revi ew and comparison. FINDINGS: Cerebrum: The ventricles are normal for age. No evidence of midline shift, mass lesion, hemorrhage or acute infarction. No extraaxial fluid collections are seen. Posterior Fossa: The cerebellum and brainstem are intact. The 4th ventricle is midline. The cerebe llopontine angle is unremarkable. Extracranial: The visualized portion of the orbits is intact. Skull: The calvaria is intact. No evidence of skull fracture. CONCLUSION: 1. No evidence of acute infarct, hemorrhage, mass or edema. 2. Normal exam for age. . Electronically signed by: Talib Briceño MD 01/21/2018 3:52 PM EST
--- NOTE | 2018-01-21 17:36 | MB ---
cc: Kristen Raymundo MD DATE: 01/21/2018 REASON FOR CONSULTATION: TIA, atrial fibrillation. HISTORY OF PRESENT ILLNESS: This is a 57-year-old man with a history of atrial fibrillation, admitted via his primary care for some paresthesias he had in the left side and arm, fingers, cheek without any residual weakness. He was feeling fine today, went to the gym, but he states that he thinks the tingling could have been due to his medicine that he was started on, but it is one-sided so he called his primary and was told to come in. He denies any weakness, chest pain, shortness of breath. He states he was found to have atrial fibrillation. He was told to stay on aspirin. He states that if he does not take his stomach medicine, it sounds like for reflux, that he gets the atrial fibrillation, and if he has any abnormal tingling, he takes 2 aspirins, and it goes away. His schedule clerk is Dr. Mtz. He had extensive workup in the past. He had a cardiac catheterization, 06/10/2017, shows post-procedure mild coronary artery disease. PAST MEDICAL HISTORY: Hypertension, chronic low back pain. He has had appendectomy, vasectomy, and back surgery. ALLERGIES: TYLENOL WITH CODEINE. SOCIAL HISTORY: He used to drink about 6 beers a day in the past. He does not smoke. He works for [email or web address]. He is fairly active, otherwise. He states he goes to the gym. PHYSICAL EXAMINATION: VITAL SIGNS: His temperature is 97.8, pulse 82, respiratory rate 17, blood pressure 156/81, saturating at 98%. GENERAL: He is awake, alert. He is oriented. He is fluent. NEUROLOGIC: His pupils are reactive. Face symmetrical. Tongue midline. Motor: He does not exhibit any weakness whatsoever. Cerebellar testing normal. Reflexes are normal. Toes are downgoing. NECK: Supple with no bruits. CARDIOVASCULAR: Regular. No murmurs, rubs, or gallops. IMAGING DATA: He had a CT of the head upon admission that showed nothing acute. Chest x-ray: No acute process. LABORATORY DATA: CBC: White count 9.7, hematocrit 44, hemoglobin 15.5, platelets are 184,000. Coag panel is normal. Chemistry: Glucose 111. Troponin less than 0.02. Toxicology screen was negative. IMPRESSION: This is a 57-year-old man with questionable transient ischemic attack, paresthesias that are coming and going. This certainly can be transient ischemic attack like events from his atrial fibrillation. However, concerning is that his atrial fibrillation is paroxysmal. He has been taking a baby aspirin and despite that has been having some symptomatology. I would defer to another option such as anticoagulation if cardiology agrees. Certainly, we can do a screening MRI to make sure that he has not had any embolic phenomenon. He has never had a carotid ultrasound. We will go ahead and get that ordered as well. I am not going to reorder echo. He had a complete catheterization. Maintain him on telemetry, and if no contraindications, I think anticoagulant of choice, either cardiology's choice or the primary care's, should be entertained. As stated, I will order his carotid ultrasound and MRI. MD REBECCA Steward/elaine , 04:55 PM , 05:03 PM
--- NOTE | 2018-01-21 19:12 | MR ---
EXAM DATE: 01/21/2018 7:00 PM EST AGE/SEX: 57 years / Male INDICATIONS: TIA. Tingling CLINICAL DATA: This is the patient's initial encounter. Patient reports that signs and symptoms have been present for 1 day and indicates a pain score of 0/10. MEDICAL/SURGICAL HISTORY: Hypertension. Appendectomy. Nasal sx, Herniated Disc L5-S1 COMPARISON: [facility] [place], 01/21/2018. . TECHNIQUE: Multiplanar, multisequence examination of the brain was performed without contrast. FINDINGS: Cerebrum: The ventricles are normal for age. No evidence of midline shift, mass lesion, hemorrhage or acute infarction. No extraaxial fluid collections are seen. The pituitary gland and suprasellar cistern are normal in configuration. White Matter: No significant signal abnormalities are seen in the white matter. Posterior Fossa: The cerebellum and brainstem are intact. The 4th ventricle is midline. The cerebel lopontine angle is unremarkable. The cerebellar tonsils are normal in position. Diffusion Imaging: No focal areas of restricted diffusion are seen. No evidence of acute infarction . Extracranial: The visualized portions of the orbits and paranasal sinuses are unremarkable. CONCLUSION: No bleed, infarct or other acute intracranial abnormality. Electronically signed by: Jong Nassar MD 01/21/2018 7:10 PM EST
--- NOTE | 2018-01-21 21:14 | US ---
EXAM DATE: 01/21/2018 8:59 PM EST AGE/SEX: 57 years / Male INDICATIONS: Transient ischemic attack. CLINICAL DATA: This is the patient's initial encounter. Patient reports that signs and symptoms have been present for 1 day and indicates a pain score of 0/10. MEDICAL/SURGICAL HISTORY: Hypertension. Atrial fibrillation. Appendectomy. Vasectomy. COMPARISON: No prior exams available for comparison. VELOCITY PARAMETERS: ICA/CCA Ratio: Right 0.9 , Left 0.8 ICA: Right 71 cm/sec, Left 59 cm/sec CCA: Right 81 cm/sec, Left 74 cm/sec ECA: Right 68 cm/sec, Left 79 cm/sec Vertebral: Right 53 cm/sec antegrade, Left 48 cm/sec antegrade FINDINGS: Right Carotid: Mild arteriosclerotic plaque is visualized of the bulb and proximal internal carotid artery.The waveforms are within normal limits. Left Carotid: No significant plaque is visualized. The waveforms are within normal limits. Other: None. CONCLUSION: 1. Right Internal Carotid Artery: Very mild atherosclerosis at the bifurcation. No significant narro wing. 2. Left Internal Carotid Artery: No significant plaque or narrowing. Electronically signed by: Jong Nassar MD 01/21/2018 9:13 PM EST
[2018-01-21] MEDS: Lisinopril 20 MG Tablet PO SCH (21:15)
[2018-01-22 06:27] LABS: Baso % (Auto) 0.5 % (0.0-2.0); Eos # (Auto) 0.2 th/mm3 (0.0-0.4); Eos % (Auto) 2.2 % (0.0-4.0); Hematocrit 42.2 % (39.0-51.0); Hemoglobin 14.9 gm/dL (13.0-17.0); Lymph # (Auto) 1.3 th/mm3 (1.0-4.8); Lymph % (Auto) 13.6 % (9.0-44.0); Mean Corpuscular HGB Conc 35.3 % (32.0-36.0); Mean Corpuscular Hemoglobin 34.8 pg (27.0-34.0); Mean Corpuscular Volume 98.7 fL (80.0-100.0); Mean Platelet Volume 9.2 fL (7.0-11.0); Mono # (Auto) 0.9 th/mm3 (0.0-0.9); Mono % (Auto) 8.8 % (0.0-8.0); Neut # (Auto) 7.2 th/mm3 (1.8-7.7); Neut % (Auto) 74.9 % (16.0-70.0); Platelet Count 178 th/mm3 (150-450); Red Blood Count 4.27 mil/mm3 (4.50-5.90); Red Cell Distribution Width 11.9 % (11.6-17.2); White Blood Count 9.7 th/mm3 (4.0-11.0)
[2018-01-22 06:52] LABS: Alanine Aminotransferase 56 U/L (12-78); Albumin 3.5 g/dL (3.4-5.0); Anion Gap 7 meq/L (5-15); Aspartate Aminotransferase 23 U/L (15-37); Blood Urea Nitrogen 12 mg/dL (7-18); Calcium 9.4 mg/dL (8.5-10.1); Carbon Dioxide 29.4 meq/L (21.0-32.0); Chloride 105 meq/L (98-107); Glomerular Filtration Rate Greater Than 89 mL/min (>89); Glucose,Random 116 mg/dL (74-106); Sodium 141 meq/L (136-145)
[2018-01-22 06:53] LABS: Alkaline Phosphatase 75 U/L (45-117)
--- NOTE | 2018-01-22 08:46 | P.HPFP ---
History of Present Illness Primary Care Physician: Cliff Escobedo DO History of Present Illness: Cane in ER for tinging to face, he voiced it started that day, he does have history of afib and HTN. He states his Triglycerides last checked are >1000. he is followed by Dr Mtz. - Diagnosis (1) TIA (transient ischemic attack) (2) Afib (3) Paroxysmal A-fib Inpatient Certification: I certify that the inpatient services were ordered in accordance with Medicare regulations governing the order. This includes certification that hospital inpatient services are reasonable and necessary and in the case of services not specified as inpatient-only under 42 CFR 419.22(n), that they are appropriately provided as inpatient services in accordance to with the 2-midnight benchmark under 43 CFR 412.3(e) Estimated Total Length of Stay (Days): 4 Plans for Post Hospital Care: Home PMF - History History Provided By: Patient - Medical History Medical History: Medical History (Last Reviewed 01/21/18 @ 13:22 by Abdullahi Hicks) A-fib Hypertension - Surgical History Surgical History: Surgical History (Last Reviewed 01/21/18 @ 13:22 by Abdullahi Hicks) History of vasectomy Hx of appendectomy - Tobacco History Second Hand Smoke Exposure: No Smoking Status: Never smoker - Alcohol History How Often Do You Have a Drink Containing Alcohol: 4 or more times a week - Substance Use History Substance History: No History of Abuse - Travel History Recent Travel in the [place] Within the Last 8 Weeks: No Recent Travel Out of the Country Within the Last 8 Weeks: No - Immunization History Tetanus Immunization: Unsure Hx Influenza Vaccine This Season: No Medications and Allergies Active Medications: Active Medications Acetaminophen (Tylenol) 650 mg PO Q4H PRN PRN Reason: PAIN 1-10 AND/OR FEVER >101F Diltiazem HCl (Cardizem Cd 24hr) 120 mg PO DAILY KM Lisinopril (Prinivil) 20 mg PO BID KM Last Admin: 01/21/18 21:15 Dose: Not Given Ondansetron HCl (Zofran Odt) 4 mg PO Q4H PRN PRN Reason: NAUSEA OR VOMITING Sodium Chloride (Ns Flush) 2 ml IV.FLUSH UNSCH PRN PRN Reason: FLUSH AFTER USING IV ACCESS Allergies Allergy/AdvReac Type Severity Reaction Status Date / Time acetaminophen AdvReac Intermediate Nausea/Vomi Verified 01/21/18 13:20 ting oxycodone AdvReac Intermediate Nausea/Vomi Verified 01/21/18 13:20 ting Home Medications Medication Instructions Recorded Confirmed Type diltiazem HCl 120 mg PO DAILY 01/21/18 01/21/18 History quinapril 20 mg PO BID 01/21/18 01/21/18 History Exam Vital signs: Vital Signs 01/21/18 13:02 01/21/18 13:06 01/21/18 13:22 Temperature 98.3 F Pulse Rate 82 75 79 Respiratory Rate 16 16 Blood Pressure 172/86 H 143/96 H Pulse Oximetry 96 94 L 01/21/18 14:55 01/21/18 15:42 01/21/18 20:00 Temperature 97.8 F 97.9 F Pulse Rate 76 83 74 Respiratory Rate 17 16 Blood Pressure 156/81 H 144/82 H Pulse Oximetry 98 97 01/22/18 00:00 01/22/18 04:00 Temperature 97.8 F 98.2 F Pulse Rate 72 72 Respiratory Rate 18 18 Blood Pressure 148/76 H 136/87 Pulse Oximetry 97 94 L Intake & Output 01/21/18 01/22/18 01/22/18 18:59 06:59 18:59 Intake Total 360 / 360 Balance 360 / 360 Weight 108.862 kg 110.4 kg Intake: Oral 360 / 360 Other: # Voids 4 - Constitutional no acute distress - Routine HEENT Exam Head: Present: normocephalic ENT: Present: mucous membranes moist - Routine Neck Exam Present: supple - Routine Respiratory Exam Present: CTA bilaterally - Routine Cardiovascular Exam Present: S1, S2 - Routine Abdominal Exam Present: soft, normoactive bowel sounds - Routine Extremities Exam Present: pulses intact - Routine Skin Exam Present: dry, warm - Routine Neurological Exam Present: alert, oriented X3 Results - Labs Result diagrams: 01/22/18 05:53 01/22/18 05:53 Abnormal lab results 01/21/18 01/21/18 01/22/18 Range/Units 13:30 13:30 05:53 RBC 4.41 L 4.27 L (4.50-5.90) mil/mm3 MCH 35.1 H 34.8 H (27.0-34.0) pg Neut % (Auto) 78.6 H 74.9 H (16.0-70.0) % Bee % (Auto) 8.8 H (0.0-8.0) % Random Glucose 111 H (74-106) mg/dL Troponin I Less than 0.02 L (0.02-0.05) ng/mL 01/22/18 Range/Units 05:53 RBC (4.50-5.90) mil/mm3 MCH (27.0-34.0) pg Neut % (Auto) (16.0-70.0) % Bee % (Auto) (0.0-8.0) % Random Glucose 116 H (74-106) mg/dL Troponin I (0.02-0.05) ng/mL Short CBC 01/21/18 01/22/18 Range/Units 13:30 05:53 WBC 9.7 9.7 (4.0-11.0) th/mm3 Hgb 15.5 14.9 (13.0-17.0) gm/dL Hct 44.0 42.2 (39.0-51.0) % Plt Count 184 178 (150-450) th/mm3 BMP 01/21/18 01/22/18 13:30 05:53 Sodium 141 141 Potassium 3.7 4.0 Chloride 105 105 Carbon Dioxide 27.8 29.4 BUN 13 12 Creatinine 0.79 0.86 Calcium 9.5 9.4 Cardiac Enzymes 01/21/18 Range/Units 13:30 Total Creatine Kinase 59 (39-308) U/L Troponin I Less than 0.02 L (0.02-0.05) ng/mL Liver Function 01/21/18 01/22/18 Range/Units 13:30 05:53 Total Bilirubin 0.5 0.8 (0.2-1.0) mg/dL AST 31 23 (15-37) U/L ALT 66 56 (12-78) U/L Alkaline Phosphatase 80 75 (45-117) U/L Albumin 3.8 3.5 (3.4-5.0) g/dL - Imaging Impressions Carotid Doppler Study 01/21/18 00:00 CONCLUSION: 1. Right Internal Carotid Artery: Very mild atherosclerosis at the bifurcation. No significant narrowing. 2. Left Internal Carotid Artery: No significant plaque or narrowing. Head MRI 01/21/18 00:00 CONCLUSION: No bleed, infarct or other acute intracranial abnormality. Chest X-Ray 01/21/18 13:19 CONCLUSION: No evidence of acute cardiopulmonary process. Head CT 01/21/18 13:19 CONCLUSION: 1. No evidence of acute infarct, hemorrhage, mass or edema. 2. Normal exam for age. . Caprini VTE Risk Assessment Caprini VTE Risk Assessment: Moderate/High Risk (score >= 2) Caprini Risk Assessment Model: Point Value = 1 Point Value = 2 Point Value = 3 Point Value = 5 Age 41-60 Minor surgery BMI > 25 kg/m2 Swollen legs Varicose veins or History of unexplained or recurrent spontaneous Oral contraceptives or hormone replacement Sepsis (< 1 month) Serious lung disease, including pneumonia (< 1 month) Abnormal pulmonary function Acute myocardial infarction Congestive heart failure (< 1 month) History of inflammatory bowel disease Medical patient at bed rest Age 61-74 Arthroscopic surgery Major open surgery (> 45 min) Laparoscopic surgery (> 45 min) Malignancy Confined to bed (> 72 hours) Immobilizing plaster cast Central venous access Age >= 75 History of VTE Family history of VTE Factor V Leiden Prothrombin [id number] Lupus anticoagulant Anticardiolipin antibodies Elevated serum homocysteine Heparin-induced thrombocytopenia Other congenital or acquired thrombophilia Stroke (< 1 month) Elective arthroplasty Hip, pelvis, or leg fracture Acute spinal cord injury (< 1 month) Prophylaxis Regimen: Total Risk Factor Score Risk Level Prophylaxis Regimen 0-1 Low Early ambulation 2 Moderate Order ONE of the following: *Sequential Compression Device (SCD) *Heparin 5000 units SQ BID 3-4 Higher Order ONE of the following medications: *Heparin 5000 units SQ TID *Enoxaparin/Lovenox 40 mg SQ daily (WT < 150 kg, CrCl > 30 mL/min) *Enoxaparin/Lovenox 30 mg SQ daily (WT < 150 kg, CrCl > 10-29 mL/min) *Enoxaparin/Lovenox 30 mg SQ BID (WT < 150 kg, CrCl > 30 mL/min) AND/OR *Sequential Compression Device (SCD) 5 or more Highest Order ONE of the following medications: *Heparin 5000 units SQ TID (Preferred with Epidurals) *Enoxaparin/Lovenox 40 mg SQ daily (WT < 150 kg, CrCl > 30 mL/min) *Enoxaparin/Lovenox 30 mg SQ daily (WT < 150 kg, CrCl > 10-29 mL/min) *Enoxaparin/Lovenox 30 mg SQ BID (WT < 150 kg, CrCl > 30 mL/min) AND *Sequential Compression Device (SCD) Assessment and Plan - Assessment (1) TIA (transient ischemic attack) Code(s): G45.9 - Transient cerebral ischemic attack, unspecified Status: Acute Plan: Neuro consult, carotis US, MRI (2) Afib Code(s): I48.91 - Unspecified atrial fibrillation Status: Acute (3) Paroxysmal A-fib Code(s): I48.0 - Paroxysmal atrial fibrillation Status: Acute Plan: He is on 2 asa daily, neuro feels something with better coverage warranted. Cardiology consult pending Holter Monitor? - Assessment and Plan 01/22/18- Neuro workup showing no Infarct or bleed, anticoagulant recommended/ Cardiac consult pending. Likely Holter monitor. DC once cleared by cardiology. H&P: Quality - VTE Deep Vein Thrombosis/Pulmonary Embolism Present on Admission: No
--- NOTE | 2018-01-22 08:55 | P.DS ---
Date of admission: 01/21/18 14:37 Primary care physician: Cliff Escobedo DO Brief History from admission: Cane in ER for tinging to face, he voiced it started that day, he does have history of afib and HTN. He states his Triglycerides last checked are >1000. he is followed by Dr Mtz. DS: Diagnosis - Discharge Diagnosis (1) TIA (transient ischemic attack) Status: Acute (2) Afib Status: Acute (3) Paroxysmal A-fib Status: Acute DS: Summary Hospital Course: Presented for tingling in face, has HX of P-Afib, Seen by neuro, workup shows no infarct or bleed. Cardiology consulted. Patient adamant about leaving " Has stuff to do". Cardiology called agree to have patient come to office today for Holter monitor. - Time Spent with Patient Total time spent providing and/or coordinating discharge services: 30 Less than 30 minutes - Quality: AMI Clinical Trial Participant: No - Quality: Stroke Symptom Onset Unknown: No - Quality: VTE Is this test being ordered to rule out VTE?: No Deep Vein Thrombosis/Pulmonary Embolism Present on Admission: No Exam Vital signs: Vital Signs 01/21/18 13:02 01/21/18 13:06 01/21/18 13:22 Temperature 98.3 F Pulse Rate 82 75 79 Respiratory Rate 16 16 Blood Pressure 172/86 H 143/96 H Pulse Oximetry 96 94 L 01/21/18 14:55 01/21/18 15:42 01/21/18 20:00 Temperature 97.8 F 97.9 F Pulse Rate 76 83 74 Respiratory Rate 17 16 Blood Pressure 156/81 H 144/82 H Pulse Oximetry 98 97 01/22/18 00:00 01/22/18 04:00 01/22/18 08:47 Temperature 97.8 F 98.2 F 98.1 F Pulse Rate 72 72 73 Respiratory Rate 18 18 17 Blood Pressure 148/76 H 136/87 145/91 H Pulse Oximetry 97 94 L 98 Intake & Output 01/21/18 01/22/18 01/22/18 18:59 06:59 18:59 Intake Total 360 / 360 Balance 360 / 360 Weight 108.862 kg 110.4 kg Intake: Oral 360 / 360 Other: # Voids 4 - Constitutional no acute distress - Routine HEENT Exam Head: Present: normocephalic Eye: Present: PERRL ENT: Present: mucous membranes moist - Routine Neck Exam Present: supple - Routine Respiratory Exam Present: CTA bilaterally - Routine Cardiovascular Exam Present: S1, S2 - Routine Extremities Exam Present: edema - Routine Skin Exam Present: dry, warm - Routine Neurological Exam Present: alert, oriented X3 Results Procedures completed during hospitalization: N/A Labs on day of discharge: Labs from last 24 hours 01/22/18 01/22/18 01/21/18 05:53 05:53 13:30 WBC 9.7 RBC 4.27 L Hgb 14.9 Hct 42.2 MCV 98.7 MCH 34.8 H MCHC 35.3 RDW 11.9 Plt Count 178 MPV 9.2 Neut % (Auto) 74.9 H Lymph % (Auto) 13.6 [place] % (Auto) 8.8 H Eos % (Auto) 2.2 Baso % (Auto) 0.5 Neut # (Auto) 7.2 Lymph # (Auto) 1.3 [place] # (Auto) 0.9 Eos # (Auto) 0.2 Baso # (Auto) 0.0 WBC Differential . Differential Comment Auto diff final PT INR APTT Sodium 141 Potassium 4.0 Chloride 105 Carbon Dioxide 29.4 Anion Gap 7 BUN 12 Creatinine 0.86 Estimated GFR Greater than 89 Random Glucose 116 H Calcium 9.4 Total Bilirubin 0.8 AST 23 ALT 56 Alkaline Phosphatase 75 Total Creatine Kinase Troponin I B-Natriuretic Peptide 25 Total Protein 7.0 Albumin 3.5 Urine Opiates Screen Ur Barbiturates Screen Ur Amphetamines Screen U Benzodiazepines Scrn Urine Cocaine Screen U Cannabinoids Screen 01/21/18 01/21/18 01/21/18 13:30 13:30 13:30 WBC 9.7 RBC 4.41 L Hgb 15.5 Hct 44.0 MCV 99.9 MCH 35.1 H MCHC 35.1 RDW 12.1 Plt Count 184 MPV 9.5 Neut % (Auto) 78.6 H Lymph % (Auto) 12.8 [place] % (Auto) 6.7 Eos % (Auto) 1.6 Baso % (Auto) 0.3 Neut # (Auto) 7.6 Lymph # (Auto) 1.2 [place] # (Auto) 0.7 Eos # (Auto) 0.2 Baso # (Auto) 0.0 WBC Differential . Differential Comment Auto diff final PT 10.2 INR 1.0 APTT 26.4 Sodium 141 Potassium 3.7 Chloride 105 Carbon Dioxide 27.8 Anion Gap 8 BUN 13 Creatinine 0.79 Estimated GFR Greater than 89 Random Glucose 111 H Calcium 9.5 Total Bilirubin 0.5 AST 31 ALT 66 Alkaline Phosphatase 80 Total Creatine Kinase 59 Troponin I Less than 0.02 L B-Natriuretic Peptide Total Protein 7.2 Albumin 3.8 Urine Opiates Screen Ur Barbiturates Screen Ur Amphetamines Screen U Benzodiazepines Scrn Urine Cocaine Screen U Cannabinoids Screen 01/21/18 13:20 WBC RBC Hgb Hct MCV MCH MCHC RDW Plt Count MPV Neut % (Auto) Lymph % (Auto) [place] % (Auto) Eos % (Auto) Baso % (Auto) Neut # (Auto) Lymph # (Auto) [place] # (Auto) Eos # (Auto) Baso # (Auto) WBC Differential Differential Comment PT INR APTT Sodium Potassium Chloride Carbon Dioxide Anion Gap BUN Creatinine Estimated GFR Random Glucose Calcium Total Bilirubin AST ALT Alkaline Phosphatase Total Creatine Kinase Troponin I B-Natriuretic Peptide Total Protein Albumin Urine Opiates Screen Neg Ur Barbiturates Screen Neg Ur Amphetamines Screen Neg U Benzodiazepines Scrn Neg Urine Cocaine Screen Neg U Cannabinoids Screen Neg - Impressions ITS Impressions Carotid Doppler Study 01/21/18 00:00 CONCLUSION: 1. Right Internal Carotid Artery: Very mild atherosclerosis at the bifurcation. No significant narrowing. 2. Left Internal Carotid Artery: No significant plaque or narrowing. Head MRI 01/21/18 00:00 CONCLUSION: No bleed, infarct or other acute intracranial abnormality. Chest X-Ray 01/21/18 13:19 CONCLUSION: No evidence of acute cardiopulmonary process. Head CT 01/21/18 13:19 CONCLUSION: 1. No evidence of acute infarct, hemorrhage, mass or edema. 2. Normal exam for age. . Discharge Plan - Discharge Disposition Patient Disposition: Discharge Home - Discharge Condition Condition: Good - Discharge Order Discharge Orders: Discharge Order (Routine); Ordered 01/22/18 Ordered By: Corrie Meraz - Physicians Team Primary Care Provider: Cliff Escobedo Attending Provider: Cliff Escobedo Other Providers: Martha Mtz MD ; Kristen Raymundo MD
[2018-01-22] MEDS ORDERED: dilTIAZem CD 120 MG Capsule PO SCH (09:00)
[2018-01-22] MEDS: Lisinopril 20 MG Tablet PO SCH (09:12)
--- NOTE | 2018-01-22 13:57 | P.CONCA ---
History of Present Illness Service: Cardiology Consult date: 01/22/18 Requesting Physician: Yariel Baez Reason for Consult: Atrial fibrillation Primary Care Provider: Cliff Escobedo DO History of Present Illness: This is a 57-year-old male known to Dr. Mtz with a past medical history of atrial fibrillation, essential hypertension, chronic back pain and osteoarthritis. He developed tingling in the face yesterday and decided to come to the Emergency Department for further evaluation. He denied any CP, pressure, palpitations, dizziness or shortness of breathing during this episode. He does have a history of paroxysmal atrial fibrillation and is taking aspirin. He currently denies any chest pain, pressure, palpitations, dizziness, edema or shortness of breath. He states that the tingling in his face is gone at this time. Review of Systems All other systems reviewed negative except as stated [facility] - History History Provided By: Patient - Medical History Medical History: Medical History (Last Reviewed 01/21/18 @ 13:22 by Abdullahi Hicks) A-fib Hypertension - Surgical History Surgical History: Surgical History (Last Reviewed 01/21/18 @ 13:22 by Abdullahi Hicks) History of vasectomy Hx of appendectomy - Tobacco History Second Hand Smoke Exposure: No Smoking Status: Never smoker - Alcohol History How Often Do You Have a Drink Containing Alcohol: 4 or more times a week - Substance Use History Substance History: No History of Abuse - Travel History Recent Travel in the [place] Within the Last 8 Weeks: No Recent Travel Out of the Country Within the Last 8 Weeks: No - Immunization History Tetanus Immunization: Unsure Hx Influenza Vaccine This Season: No Medications and Allergies Allergies Allergy/AdvReac Type Severity Reaction Status Date / Time acetaminophen AdvReac Intermediate Nausea/Vomi Verified 01/21/18 13:20 ting oxycodone AdvReac Intermediate Nausea/Vomi Verified 01/21/18 13:20 ting Home Medications Medication Instructions Recorded Confirmed Type diltiazem HCl 120 mg PO DAILY 01/21/18 01/21/18 History quinapril 20 mg PO BID 01/21/18 01/21/18 History Exam Vital signs: Vital Signs 01/21/18 14:55 01/21/18 15:42 01/21/18 20:00 Temperature 97.8 F 97.9 F Pulse Rate 76 83 74 Respiratory Rate 17 16 Blood Pressure 156/81 H 144/82 H Pulse Oximetry 98 97 01/22/18 00:00 01/22/18 04:00 01/22/18 08:47 Temperature 97.8 F 98.2 F 98.1 F Pulse Rate 72 72 73 Respiratory Rate 18 18 17 Blood Pressure 148/76 H 136/87 145/91 H Pulse Oximetry 97 94 L 98 Intake & Output 01/21/18 01/22/18 01/22/18 18:59 06:59 18:59 Intake Total 360 / 360 Balance 360 / 360 Weight 108.862 kg 110.4 kg Intake: Oral 360 / 360 Other: # Voids 4 - Constitutional no acute distress - Routine HEENT Exam Head: Present: normocephalic Eye: Present: PERRL ENT: Present: mucous membranes moist - Routine Neck Exam Present: full ROM - Routine Respiratory Exam Present: CTA bilaterally - Routine Cardiovascular Exam Present: S1, S2. Absent: murmur, gallop, rubs - Routine Abdominal Exam Present: normoactive bowel sounds - Routine Extremities Exam Present: full ROM, pulses intact, normal capillary refill. Absent: cyanosis, clubbing, edema - Routine Skin Exam Present: intact - Routine Neurological Exam Present: oriented X3 Results 01/22/18 05:53 01/22/18 05:53 Cardiac Enzymes 01/21/18 01/21/18 01/22/18 Range/Units 13:30 13:30 05:53 AST 31 23 (15-37) U/L Troponin I Less than 0.02 L (0.02-0.05) ng/mL B-Natriuretic Peptide 25 (0-100) pg/mL Coagulation 01/21/18 01/21/18 Range/Units 13:30 13:30 PT 10.2 (9.8-11.6) sec APTT 26.4 (23.4-31.7) sec B-Natriuretic Peptide 25 (0-100) pg/mL CBC 01/21/18 01/22/18 Range/Units 13:30 05:53 WBC 9.7 9.7 (4.0-11.0) th/mm3 RBC 4.41 L 4.27 L (4.50-5.90) mil/mm3 Hgb 15.5 14.9 (13.0-17.0) gm/dL Hct 44.0 42.2 (39.0-51.0) % Plt Count 184 178 (150-450) th/mm3 Neut # (Auto) 7.6 7.2 (1.8-7.7) th/mm3 Lymph # (Auto) 1.2 1.3 (1.0-4.8) th/mm3 Boundary # (Auto) 0.7 0.9 (0.0-0.9) th/mm3 Eos # (Auto) 0.2 0.2 (0.0-0.4) th/mm3 Baso # (Auto) 0.0 0.0 (0.0-0.2) th/mm3 Comprehensive Metabolic Panel 01/21/18 01/22/18 Range/Units 13:30 05:53 Sodium 141 141 (136-145) meq/L Potassium 3.7 4.0 (3.5-5.1) meq/L Chloride 105 105 (98-107) meq/L Carbon Dioxide 27.8 29.4 (21.0-32.0) meq/L BUN 13 12 (7-18) mg/dL Creatinine 0.79 0.86 (0.60-1.30) mg/dL Calcium 9.5 9.4 (8.5-10.1) mg/dL AST 31 23 (15-37) U/L ALT 66 56 (12-78) U/L Alkaline Phosphatase 80 75 (45-117) U/L Total Protein 7.2 7.0 (6.4-8.2) g/dL Albumin 3.8 3.5 (3.4-5.0) g/dL Intake and Output 01/21/18 01/22/18 01/22/18 22:59 06:59 14:59 Intake Total 360 / 360 Balance 360 / 360 Intake: Oral 360 / 360 Other: # Voids 4 Weight 110.4 kg - Imaging and Cardiology Imaging: Impressions Carotid Doppler Study 01/21/18 00:00 CONCLUSION: 1. Right Internal Carotid Artery: Very mild atherosclerosis at the bifurcation. No significant narrowing. 2. Left Internal Carotid Artery: No significant plaque or narrowing. Head MRI 01/21/18 00:00 CONCLUSION: No bleed, infarct or other acute intracranial abnormality. Chest X-Ray 01/21/18 13:19 CONCLUSION: No evidence of acute cardiopulmonary process. Head CT 01/21/18 13:19 CONCLUSION: 1. No evidence of acute infarct, hemorrhage, mass or edema. 2. Normal exam for age. . Assessment and Plan - Assessment (1) TIA (transient ischemic attack) Code(s): G45.9 - Transient cerebral ischemic attack, unspecified Status: Acute (2) Paroxysmal A-fib Code(s): I48.0 - Paroxysmal atrial fibrillation Status: Acute - Plan Patient is currently SR on the monitor. No signs of acute coronary syndrome at this time. Continue current cardiac treatment plan. We instructed the patient to take full dose aspirin EC for anticoagulation Patient cleared to be discharged from a cardiac standpoint. Instructed patient to come by our office after discharge to have Holter monitor placed to evaluate for atrial fibrillation. We will follow up with the patient in 1-2 weeks in the office. Patient seen and evaluated by Dr. Mtz who participated in care management and decision making. - Attending Attestation Patient seen and examined. I reviewed and agree with the evaluation and plan as presented. Continue aspirin. Stable from cardiac standpoint. Will place 24 hr Holter and schedule outpatient f/u in our office. DC home as planned.
--- NOTE | 2018-01-22 21:39 | ECG ---
Date Performed: 01/21/2018 Time Performed: 13:51:40 PTAGE: 57 years EKG: Sinus rhythm INCOMPLETE RIGHT BUNDLE BRANCH BLOCK BORDERLINE ECG PREVIOUS TRACING : 11/03/2017 14.31 Since the previous tracing, no significant change noted DOCTOR: Martha Mtz Interpretating Date/Time 01/22/2018 21:38:08
== END 2018-01-22 09:49 | disposition home or self-care (01) ==
LOC: NEPC 12:59 → NEDA 14:37 → N05 16:18
PROVIDERS: ADMIT Family Medicine; ATTEND Family Medicine